=== PATIENT | female | born 1945 | race Caucasian/White ===

== ENCOUNTER 2018-05-08 18:35 | Observation (INO) | payer MEDICARE ==
[~2018-05-08] VITALS: Ht 157.5 cm; Wt 57.6 kg
[2018-05-08] MEDS ORDERED: LOSA50 PO (19:15)
[2018-05-08 19:43] LABS: BASOPHILS ABSOLUTE AUTO 0.04 K/mm3 (0.00-0.23); BASOPHILS PERCENT AUTO 0 % (0-2); EOSINOPHILS ABSOLUTE AUTO 0.09 K/mm3 (0.00-0.68); EOSINOPHILS PERCENT AUTO 1 % (0-6); Hematocrit 35.4 % (33.0-51.0); Hemoglobin 11.8 g/dL (11.5-16.0); IMMATURE GRAN ABSOLUTE AUTO 0.04 K/mm3 (0.00-0.10); IMMATURE GRAN PERCENT AUTO 0 % (0-1); LYMPHOCYTES ABSOLUTE AUTO 2.23 K/mm3 (0.84-5.20); LYMPHOCYTES PERCENT AUTO 24 % (21-46); MONOCYTES ABSOLUTE AUTO 0.62 K/mm3 (0.16-1.47); MONOCYTES PERCENT AUTO 7 % (4-13); Mean Corpuscular HGB Conc 33.3 g/dL (31.5-36.5); Mean Corpuscular Volume 84 fL (80-100); Mean Platelet Volume 9.7 fL (9.1-12.4); NEUTROPHILS ABSOLUTE AUTO 6.44 K/mm3 (1.96-9.15); NEUTROPHILS PERCENT AUTO 68 % (41-73); Platelet Count 315 K/mm3 (150-400); RDW Coefficient Variation 14.1 % (11.7-14.2); RDW Standard Deviation 43.6 fL (35.1-46.3); Red Blood Cell Count 4.22 M/mm3 (3.80-5.20); White Blood Cell Count 9.46 K/mm3 (4.00-11.30)
[2018-05-08 20:03] LABS: Alanine Aminotransfer (ALT/SGP 18 U/L (12-78); Albumin, Blood 3.5 g/dL (3.4-5.0); Albumin/Globulin Ratio 0.8 (0.8-1.8); Alk Phos 127 U/L (50-136); Anion Gap 11 mmol/L (6-16); Aspartate Aminotrans (AST/SGOT 12 U/L (12-37); Bilirubin, Total 0.3 mg/dL (0.1-1.0); Blood Urea Nitrogen 10 mg/dL (8-24); Bun/Creatinine Ratio 14.8 (12.0-20.0); CO2, Blood 23 mmol/L (21-32); Calcium, Blood 9.2 mg/dL (8.5-10.1); Chloride, Blood 104 mmol/L (98-108); Creatinine, Blood 0.68 mg/dL (0.40-1.00); Globulin, Blood 4.5 g/dL (2.2-4.0); Glomerular Filtration Rate >60 (60-); Glucose, Blood 103 mg/dL (70-99); Potassium, Blood 3.5 mmol/L (3.5-5.5); Sodium, Blood 138 mmol/L (136-145)
[2018-05-08] MEDS ORDERED: Aspir 8181 MG PO (22:58)
== END 2018-05-09 16:26 | disposition home or self-care (01) ==
LOC: ER 18:35 → PCU 18:36
PROVIDERS: Emergency Medicine
DX: I16.0 Hypertensive urgency (principal); I71.4 Abdominal aortic aneurysm, without rupture; F17.210 Nicotine dependence, cigarettes, uncomplicated; J43.9 Emphysema, unspecified; Z79.82 Long term (current) use of aspirin; Z79.899 Other long term (current) drug therapy
CPT/HCPCS: 36415; 80053; 85025; 93005; 93010; 96374; 96376; 99284-25; G0378

== ENCOUNTER 2022-10-30 09:22 | Inpatient (IN) | payer MEDICARE ==
[~2022-10-30] VITALS: Ht 157.5 cm; Wt 56.7 kg
[~2022-10-30 09:22] MED LIST: Aspir 8181 MG PO; LOSA50 PO
[2022-10-30 10:27] LABS: BASOPHILS ABSOLUTE AUTO 0.04 K/mm3 (0.00-0.23); BASOPHILS PERCENT AUTO 1 % (0-2); EOSINOPHILS ABSOLUTE AUTO 0.02 K/mm3 (0.00-0.68); EOSINOPHILS PERCENT AUTO 0 % (0-6); Hemoglobin 10.7 g/dL (11.5-16.0); IMMATURE GRAN ABSOLUTE AUTO 0.04 K/mm3 (0.00-0.10); IMMATURE GRAN PERCENT AUTO 1 % (0-1); LYMPHOCYTES ABSOLUTE AUTO 1.29 K/mm3 (0.84-5.20); LYMPHOCYTES PERCENT AUTO 20 % (21-46); MONOCYTES ABSOLUTE AUTO 0.99 K/mm3 (0.16-1.47); MONOCYTES PERCENT AUTO 16 % (4-13); Mean Corpuscular HGB 24.8 pg (26.0-34.0); Mean Corpuscular HGB Conc 32.4 g/dL (31.5-36.5); Mean Corpuscular Volume 76 fL (80-100); Mean Platelet Volume 10.1 fL (9.1-12.4); NEUTROPHILS ABSOLUTE AUTO 3.98 K/mm3 (1.96-9.15); NEUTROPHILS PERCENT AUTO 63 % (41-73); Platelet Count 315 K/mm3 (150-400); RDW Standard Deviation 45.1 fL (35.1-46.3); Red Blood Cell Count 4.32 M/mm3 (3.80-5.20); White Blood Cell Count 6.36 K/mm3 (4.00-11.30)
[2022-10-30] MEDS ORDERED: CARVEDILOL6.25 MG PO (10:32)
[2022-10-30] MEDS ORDERED: LOSA50 PO (10:33)
[2022-10-30] MEDS ORDERED: ATOR10 PO (10:33)
[2022-10-30 10:50] LABS: Albumin, Blood 2.6 g/dL (3.4-5.0); Albumin/Globulin Ratio 0.7 (0.8-1.8); Bilirubin, Total 0.3 mg/dL (0.1-1.0); Bun/Creatinine Ratio 44.1 (12.0-20.0); Calcium, Blood 8.6 mg/dL (8.5-10.1); Creatinine, Blood 0.73 mg/dL (0.40-1.00); Globulin, Blood 3.9 g/dL (2.2-4.0); Total Protein, Blood 6.5 g/dL (6.4-8.2)
--- NOTE | 2022-10-30 16:06 | NUR ---
DR. BO CONTACTED PT REPORTS 3-4 WEEKS OF CONSTIPATION THEN TAKING LAXATIVE AND EXPERIENCING BROWN WATER VOMIT/DIARRHEA/URINE PT HAS REPORTS HX OF OBSTRUCTION REPAIR. CLARIFIED LAB ORDER, PLAN TO NOTIFY LAB OF SERUM K+ DRAW AFTER SECOND BAG OF K+ INFUSION FOR A TOTAL OF 120 MEQ K+ ADMIN.
--- NOTE | 2022-10-30 17:57 | NUR ---
SHIFT SUMMARY PT A&OX4 AND IN PLEASENT MOOD SINCE ARRIVAL FROM ER. CL DIET AT THIS TIME, CAN ADVANCE TOLERATING PER ORDERS. PT C/O ABD DISCOMFORT-PT REPORTS HX OF OBSTRUCTION REPAIR DUE TO SCARRING FROM PREVIOUS SURG. PT REPORTS 3-4 WEEK CONSTIPATION AT HOME THEN TOOK SOME MEDS AND VOMITED "CHOCOLATE MILK" LIKE SUBSTANCE, BROWN WATER BOWEL MOVEMENT/URINE-REPORTED TO KMaynor CRIT. LOW- PLAN TO REASSESS AFTER 120 MEQ K+ ADMIN PER DR. BO. SBA. VSS. CALL LIGHT W/IN REACH.
--- NOTE | 2022-10-31 04:01 | NUR ---
SHIFT MOSTLY UNREMARKABLE. FINISHED IV K+ INFUSION EARLY IN SHIFT AND HAD REPEAT LAB DRAW TO CHECK SERUM K+ LEVELS AT ABOUT 2200. RESULTS SHOWED VALUE OF 2.7. HOSPITALIST NOTIFIED WHO ORDERED 40 MEQ PO K+ ADMINISTRATION AND REPEAT SERUM K+ CHECK WITH MORNING LABS. PT ASYMPTOMATIC, COMFORTABLE, AND ABLE TO SLEEP WELL THROUGH MOST OF REMAINDER OF SHIFT. INDEPENDENT WITHIN ROOM AND ABLE TO MAKE NEEDS KNOWN. CALL LIGHT LEFT WITHIN REACH.
[2022-10-31 06:16] LABS: Bun/Creatinine Ratio 28.8 (12.0-20.0); Calcium, Blood 7.9 mg/dL (8.5-10.1); Creatinine, Blood 0.66 mg/dL (0.40-1.00)
--- NOTE | 2022-10-31 18:16 | NUR ---
SUMMARY- PT A/O X3-4- FORGETFUL TO DETAILS. TOLERATED CLEARS FOR BREAKFAST, BECAME MORE NAUTIOUS AFTER LUNCH, MEDICATED WITH ZOFRAN. HAD AN EMISIS AFTER ZOFOAN, BROWN IN COLOR, NOT COFFEE GROUND. HAD LOOSE TABARES STOOL X2 THIS SHIFT. BT NORMOACTIVE. ABD TENDER UPPER QUAD. RECTAL CHECK FELT NO IMPACTION. CALLED KARINA FOR ADDITIONAL ANTIEMETIC AND TO ASSESS IF PT NEEDS IVF THROUGH THE NIGHT. KCL REPLACEMENT AFTER 1300 K+ 2.8 (DOWN FROM 3.0 @0500) WILL RE-EVAL IN AM.
[2022-10-31 21:19] LABS: Bun/Creatinine Ratio 22.5 (12.0-20.0); Calcium, Blood 8.3 mg/dL (8.5-10.1); Creatinine, Blood 0.62 mg/dL (0.40-1.00); Potassium, Blood 3.4 mmol/L (3.5-5.5)
--- NOTE | 2022-11-01 06:26 | NUR ---
SHIFT SUMMARY NOC PT A/O X 3-4. PT HAD 40 MEQ REPLACEMENT POTASSIUM YESTERDAY AFTERNOON AND POTASSIUM LEVEL IN EVENING WAS 3.4. WAITING ON AM LABS. PT HAD ONE XS LOOSE WATERY STOOL. PT STILL HAVING C/O OF RLQ ABD PAIN. HOSPITALIST WAS NOTIFIED AND CT ABD/PELVIS WO CONTRAST ORDERED. IMAGING JUST PICKED UP PT TO TAKE DOWNSTAIRS. PT HAS HX OF SBO.
[2022-11-01 09:26] LABS: Hematocrit 31.2 % (33.0-51.0); Mean Corpuscular HGB 24.7 pg (26.0-34.0); Mean Corpuscular HGB Conc 32.1 g/dL (31.5-36.5); Mean Corpuscular Volume 77 fL (80-100); Mean Platelet Volume 9.9 fL (9.1-12.4); Platelet Count 203 K/mm3 (150-400); RDW Coefficient Variation 16.4 % (11.7-14.2); RDW Standard Deviation 46.3 fL (35.1-46.3); Red Blood Cell Count 4.05 M/mm3 (3.80-5.20); White Blood Cell Count 2.08 K/mm3 (4.00-11.30)
[2022-11-01 09:46] LABS: International Normalized Ratio 1.31; Prothrombin Time Results 13.5 Sec (9.7-11.5)
--- NOTE | 2022-11-01 10:15 | NUR ---
PT TO OR AT THIS TIME POWERGLIDE IN PLACE THIS RN INITIATED ORDERED K+ AND ZOSYN VERIFIED COMPATIBILY AT Y SITE W/ PHARM. THIS RN NOTIFIED DAUGHTER OF PLANNED SURGERY AND VERIFIED DNR ORDER PT DAUGHTER STATES NO CONINUED VENTILATION POST OP OR CPR, MEDS OK. PT ADMINISTER LOVENOX AND ASPIRIN THIS AM AND PT DID TAKE A FEW BITES OF BREAKFAST, SURGEON AWARE.
[2022-11-01 10:53] LABS: BAND PERCENT MAN 46 % (0-8); BASOPHILS PERCENT MAN 0 % (0-2); EOSINOPHILS PERCENT MAN 0 % (0-6); LYMPHOCYTES % ATYPICAL MANUAL 1 % (0-0); LYMPHOCYTES PERCENT MAN 9 % (21-46); MONOCYTES ABSOLUTE MAN 0.31 K/mm3 (0.16-1.47); MONOCYTES PERCENT MAN 15 % (4-13); MYELOCYTE ABSOLUTE MAN 0.08 K/mm3 (0.00-0.00); MYELOCYTE PERCENT MAN 4 % (0-0); NEUTROPHILS ABSOLUTE MAN 1.47 K/mm3 (1.96-9.15); SEG NEUTROPHILS PERCENT MAN 25 % (41-73); TOTAL CELLS COUNTED 100
[2022-11-01 17:03] LABS: Bun/Creatinine Ratio 22.1 (12.0-20.0); Calcium, Blood 8.1 mg/dL (8.5-10.1); Creatinine, Blood 0.63 mg/dL (0.40-1.00); Potassium, Blood 3.3 mmol/L (3.5-5.5)
--- NOTE | 2022-11-01 17:45 | NUR ---
11/01/22 1740 Yung Matta X-RAY TAKEN, DR. ARREAGA FOUND NO RETAINED ITEMS
--- NOTE | 2022-11-01 19:05 | NUR ---
Arrival to ICU from OR: Patient arrived to ICU rm 3 at 1818hr. Patient drowsy, but opening eyes spontaneously, answering questions, and following commands. VSS, spO2 96-98% on 10L Venti-mask. SpO2 now 95% on 3L/NC. Denies dyspnea/SOB. C/o mild pain "not too bad", not requiring intervention, appears comfortable. Power-glide to ANDREW patent and intact. Peripheral IV to rt wrist patent intact. NS at 100ml/hr started per EMAR. Cavanaugh cath patent and intact, draining small amount of clear yellow urine. Illestomy to rt ABD, liquid brown output in drainage bag, appliance intact, stoma wnl. Mid-line ABD incision with ROGELIO drain, C/D/I. DAYTON drain to lt upper ABD, 150ml of serosanguinous output. Crow drain to lt lower quadrant, no output noted. All ABD dressing's C/D/I.
[2022-11-01 21:48] LABS: Source, Urine Foley catheter
[2022-11-01 21:52] LABS: Bilirubin, Urine Neg (Neg); Blood, Urine 3+ (Neg); Glucose Qualitative, Urine Neg (Neg); Ketones, Urine Neg (Neg); Leukocyte Esterase, Urine Neg (Neg); Nitrite, Urine Neg (Neg); Protein, Urine 2+ (Neg); Specific Gravity, Urine 1.015 (1.003-1.022); Urobilinogen, Urine NORM (Normal)
[2022-11-01 22:36] LABS: Appearance, Urine Clear (Clear); Color, Urine Yellow (P-Yellow)
[2022-11-01 22:37] LABS: Bacteria Few /hpf; Red Blood Cells, Urine 0-2 /hpf (0-2); Squamous Epithelial Cells Few /hpf (Few); White Blood Cells, Urine 0-2 /hpf (0-5)
[2022-11-01 22:39] LABS: Amorphous Light (0-Heavy)
[2022-11-02 04:32] LABS: Hematocrit 29.4 % (33.0-51.0); Hemoglobin 9.5 g/dL (11.5-16.0); Mean Corpuscular HGB 24.6 pg (26.0-34.0); Mean Corpuscular HGB Conc 32.3 g/dL (31.5-36.5); Mean Corpuscular Volume 76 fL (80-100); Mean Platelet Volume 10.5 fL (9.1-12.4); Platelet Count 210 K/mm3 (150-400); RDW Coefficient Variation 16.7 % (11.7-14.2); RDW Standard Deviation 46.4 fL (35.1-46.3); Red Blood Cell Count 3.86 M/mm3 (3.80-5.20); White Blood Cell Count 7.05 K/mm3 (4.00-11.30)
[2022-11-02 05:01] LABS: Magnesium, Blood 1.7 mg/dL (1.6-2.4)
[2022-11-02 05:03] LABS: Albumin, Blood 1.4 g/dL (3.4-5.0); Albumin/Globulin Ratio 0.5 (0.8-1.8); Bilirubin, Total 0.6 mg/dL (0.1-1.0); Bun/Creatinine Ratio 24.8 (12.0-20.0); Calcium, Blood 7.8 mg/dL (8.5-10.1); Creatinine, Blood 0.77 mg/dL (0.40-1.00); Phosphorus, Blood 2.8 mg/dL (2.5-4.9); Total Protein, Blood 4.4 g/dL (6.4-8.2)
--- NOTE | 2022-11-02 05:52 | NUR ---
SHIFT SUMMARY: Patient had an uneventful, restful night. Her vitals have been stable. Able to wean to room air. Mostly denies pain, only medicated once for pain, otherwise she has been resting comfortably. Follows commands, pleasant and cooperative. NG remains in place with green, thick drainage. Minimal drainage from ilesotomy and keiry drain. Moderate serosanguinous output from DAYTON drain.
[2022-11-02 06:04] LABS: BAND PERCENT MAN 28 % (0-8); BASOPHILS PERCENT MAN 0 % (0-2); EOSINOPHILS ABSOLUTE MAN 0.07 K/mm3 (0.00-0.68); EOSINOPHILS PERCENT MAN 1 % (0-6); LYMPHOCYTES PERCENT MAN 10 % (21-46); METAMYELOCYTE ABSOLUTE MAN 0.56 K/mm3 (0.00-0.00); METAMYELOCYTE PERCENT MAN 8 % (0-0); MONOCYTES ABSOLUTE MAN 0.28 K/mm3 (0.16-1.47); MONOCYTES PERCENT MAN 4 % (4-13); MYELOCYTE ABSOLUTE MAN 0.21 K/mm3 (0.00-0.00); MYELOCYTE PERCENT MAN 3 % (0-0); NEUTROPHILS ABSOLUTE MAN 5.21 K/mm3 (1.96-9.15); SEG NEUTROPHILS PERCENT MAN 46 % (41-73); TOTAL CELLS COUNTED 100
--- NOTE | 2022-11-02 07:00 | NUR ---
ASSUME CARE: I have assumed care of this patient.
--- NOTE | 2022-11-02 12:17 | NUR ---
TRANSFER: Pt transferred to surgical floor. She was taken in hospital bed by WASH BOX OPERATOR. Report given to Rosalind DICK
--- NOTE | 2022-11-02 12:37 | NUR ---
1120 TO ROOM VIA BED ACCOMPANIED BY DAUGHTER. ALERT AND ORIENTED. NG PLACED TO LIS WITH DARK BROWN DRAINAGE. DAYTON TO LUQ WITH SS OUTPUT. ILEOSTOMY WITH LIQUID LIGHT BROWN DRAINAGE, STOMA PINK. VALDOVINOS WITH CLEAR YELLOW URINE OUTPUT. MIDLINE ROGELIO INTACT. MALECOT DRAIN PRESENT WITHOUT DRAINAGE AT THIS TIME..
--- NOTE | 2022-11-02 18:21 | NUR ---
PT DECLINES PAIN MEDICATION, STATES "DOESNT NEED IT, NOT IN MUCH PAIN". MALECOT DRAIN WITHOUT OUTPUT. NG WITH DK BROWN/BILE COLORED THIN LIQUIDS. DAYTON WITH SEROSANGUINOUS DRAINAGE. ILEOSTOMY WITH LIGHT BROWN LIQUID DRAINAGE, STOMA PINK. ABD INCISION INTACT WITH ROGELIO FUNCTIONING. PT DENIES NAUSEA. ASSISTS WITH TURNING SELF IN BED
[2022-11-03 05:29] LABS: Hematocrit 28.3 % (33.0-51.0); Hemoglobin 9.1 g/dL (11.5-16.0); Mean Corpuscular HGB 24.3 pg (26.0-34.0); Mean Corpuscular HGB Conc 32.2 g/dL (31.5-36.5); Mean Corpuscular Volume 76 fL (80-100); Mean Platelet Volume 10.5 fL (9.1-12.4); Platelet Count 218 K/mm3 (150-400); RDW Coefficient Variation 17.2 % (11.7-14.2); RDW Standard Deviation 46.5 fL (35.1-46.3); Red Blood Cell Count 3.75 M/mm3 (3.80-5.20); White Blood Cell Count 12.02 K/mm3 (4.00-11.30)
[2022-11-03 05:59] LABS: BAND PERCENT MAN 17 % (0-8); BASOPHILS PERCENT MAN 0 % (0-2); EOSINOPHILS PERCENT MAN 0 % (0-6); LYMPHOCYTES ABSOLUTE MAN 0.48 K/mm3 (0.84-5.20); LYMPHOCYTES PERCENT MAN 4 % (21-46); MONOCYTES PERCENT MAN 5 % (4-13); NEUTROPHILS ABSOLUTE MAN 10.93 K/mm3 (1.96-9.15); SEG NEUTROPHILS PERCENT MAN 74 % (41-73); TOTAL CELLS COUNTED 100
[2022-11-03 06:21] LABS: Albumin, Blood 1.2 g/dL (3.4-5.0); Albumin/Globulin Ratio 0.3 (0.8-1.8); Bilirubin, Total 0.4 mg/dL (0.1-1.0); Bun/Creatinine Ratio 36.6 (12.0-20.0); Calcium, Blood 7.9 mg/dL (8.5-10.1); Creatinine, Blood 0.85 mg/dL (0.40-1.00); Globulin, Blood 3.6 g/dL (2.2-4.0); Potassium, Blood 3.2 mmol/L (3.5-5.5); Total Protein, Blood 4.8 g/dL (6.4-8.2)
--- NOTE | 2022-11-03 10:08 | NUR ---
SUMMARY PTS NG DCD PER ORDERS THIS AM.
--- NOTE | 2022-11-03 14:58 | NUR ---
TURNING OVER CARE TO RADHA Diaz RN. PT RESTING IN BED. DENIES ANY NEEDS. CALL LIGHT IN REACH.
--- NOTE | 2022-11-03 17:42 | NUR ---
SHIFT SUMMARY CARE ASSUMED OF PT AT 1457. PT IS POD#[address] ALMONTE. PT HAS DENIED PAIN. IS HAVING BROWN LIQUID OUTPUT FROM HER OSTOMY. PT TOLERATED A CLEAR LIQUID DIET AND IS TRIALING A FULL LIQUID DIET FOR DINNER. PT HAS BEEN ALERT AND ORIENTED BUT FORGETFUL AT TIMES. WILL MONIOTR UNTIL REPORT TO YURIY DICK.
[2022-11-04 06:23] LABS: Hemoglobin 8.2 g/dL (11.5-16.0); Mean Corpuscular HGB 24.4 pg (26.0-34.0); Mean Corpuscular HGB Conc 32.8 g/dL (31.5-36.5); Mean Corpuscular Volume 74 fL (80-100); Mean Platelet Volume 10.8 fL (9.1-12.4); Platelet Count 195 K/mm3 (150-400); RDW Standard Deviation 46.2 fL (35.1-46.3); Red Blood Cell Count 3.36 M/mm3 (3.80-5.20); White Blood Cell Count 11.56 K/mm3 (4.00-11.30)
[2022-11-04 06:49] LABS: Albumin, Blood 1.2 g/dL (3.4-5.0); Albumin/Globulin Ratio 0.3 (0.8-1.8); Bilirubin, Total 0.3 mg/dL (0.1-1.0); Bun/Creatinine Ratio 44.7 (12.0-20.0); Calcium, Blood 7.9 mg/dL (8.5-10.1); Creatinine, Blood 0.78 mg/dL (0.40-1.00); Globulin, Blood 3.6 g/dL (2.2-4.0); Magnesium, Blood 2.3 mg/dL (1.6-2.4); Phosphorus, Blood 2.9 mg/dL (2.5-4.9); Potassium, Blood 3.4 mmol/L (3.5-5.5); Total Protein, Blood 4.8 g/dL (6.4-8.2)
[2022-11-04 07:04] LABS: BAND PERCENT MAN 1 % (0-8); BASOPHILS PERCENT MAN 0 % (0-2); EOSINOPHILS PERCENT MAN 0 % (0-6); LYMPHOCYTES ABSOLUTE MAN 0.92 K/mm3 (0.84-5.20); LYMPHOCYTES PERCENT MAN 8 % (21-46); MONOCYTES ABSOLUTE MAN 0.11 K/mm3 (0.16-1.47); MONOCYTES PERCENT MAN 1 % (4-13); MYELOCYTE ABSOLUTE MAN 0.11 K/mm3 (0.00-0.00); MYELOCYTE PERCENT MAN 1 % (0-0); SEG NEUTROPHILS PERCENT MAN 89 % (41-73); TOTAL CELLS COUNTED 100
--- NOTE | 2022-11-04 08:10 | NUR ---
dr knutson in to see pt OSTOMY LEAKED. PLACED NEW APPLIANCE AND DRESSINGS TO ABDOMEN.
--- NOTE | 2022-11-04 10:01 | NUR ---
DISCUSSED EDEMA TO RYLAN Castillo/DR MORA. NO NEW ORDERS AT THIS TIME.
--- NOTE | 2022-11-04 17:05 | NUR ---
SUMMARY PT'S OSTOMY LEAKED AND SOILED MIDLINE INCISION AT BEGINNING OF SHIFT. CHANGED APPLIANCE AND PLACED MEDIPORE DRESSING TO MIDLINE INCISION. DR ALMONTE IN TO SEE PT DURING THIS TIME. PT'S PO INTAKE POOR. ILEOSTOMY OUTPUT INCREASED TODAY; STAFF CHECKING FREQUENTLY. PT WORKED WITH THERAPY THIS AFTERNOON AND SAT UP IN CHAIR FOR APPROXIMATELY 1 HOUR. NOW RESTING BACK IN BED. CALL LIGHT IN REACH.
[2022-11-05 04:57] LABS: BASOPHILS ABSOLUTE AUTO 0.01 K/mm3 (0.00-0.23); BASOPHILS PERCENT AUTO 0 % (0-2); EOSINOPHILS ABSOLUTE AUTO 0.01 K/mm3 (0.00-0.68); EOSINOPHILS PERCENT AUTO 0 % (0-6); Hematocrit 25.7 % (33.0-51.0); Hemoglobin 8.1 g/dL (11.5-16.0); IMMATURE GRAN ABSOLUTE AUTO 0.18 K/mm3 (0.00-0.10); IMMATURE GRAN PERCENT AUTO 2 % (0-1); LYMPHOCYTES ABSOLUTE AUTO 0.93 K/mm3 (0.84-5.20); LYMPHOCYTES PERCENT AUTO 10 % (21-46); MONOCYTES ABSOLUTE AUTO 0.41 K/mm3 (0.16-1.47); MONOCYTES PERCENT AUTO 4 % (4-13); Mean Corpuscular HGB 24.1 pg (26.0-34.0); Mean Corpuscular HGB Conc 31.5 g/dL (31.5-36.5); Mean Corpuscular Volume 77 fL (80-100); NEUTROPHILS ABSOLUTE AUTO 7.85 K/mm3 (1.96-9.15); NEUTROPHILS PERCENT AUTO 84 % (41-73); Platelet Count 161 K/mm3 (150-400); RDW Coefficient Variation 17.4 % (11.7-14.2); Red Blood Cell Count 3.36 M/mm3 (3.80-5.20); White Blood Cell Count 9.39 K/mm3 (4.00-11.30)
[2022-11-05 05:17] LABS: Albumin, Blood 1.2 g/dL (3.4-5.0); Albumin/Globulin Ratio 0.3 (0.8-1.8); Bilirubin, Total 0.3 mg/dL (0.1-1.0); Bun/Creatinine Ratio 36.6 (12.0-20.0); Calcium, Blood 7.7 mg/dL (8.5-10.1); Creatinine, Blood 0.82 mg/dL (0.40-1.00); Globulin, Blood 3.7 g/dL (2.2-4.0); Potassium, Blood 3.5 mmol/L (3.5-5.5); Total Protein, Blood 4.9 g/dL (6.4-8.2)
--- NOTE | 2022-11-05 07:26 | NUR ---
POD 4 S/P COLECTOMY+ILEOSTOMY. PT VSS T/O NIGHT. PT DENIED PAIN, DRESSING W/SMALL AMT SHADOWING TO DISTAL DRESSING. DAYTON PUT OUT SMALLAMT LIGHT PINK SS DRNG, MALECOT DRAIN INTACT W/NO DRNG. ILEOSTOMY PUT OUT 1000 MG LIQ BROWN STOOL. VALDOVINOS PATANT, URINE CENTRAL SERVICE SUPPLY DISTRIBUTOR THIS AM. PO INTAKE MINIMAL, SIPS OF WATER ENC. PT REPOSITIONING SELF IN BED, ASSISTED PRN. BED ALARM ON FOR SAFETY.
--- NOTE | 2022-11-05 18:41 | NUR ---
SHIFT SUMMARY POD 5 SIGMOID COLECTOMY WITH ILEOSTOMY. [id number]. PT UP IN CHAIR FOR MOST OF SHIFT TODAY. PT PLACED ON 3L NASAL CANULA THIS AM BY RESPIRATORY THERAPY. SATS WERE DROPPING WHEN PT ATTEMPTED TO GET TO EDGE OF BED. SINCE 3L PLACED SATS HAVE REMAINED 94% OR HIGHER. ILEOSTOMY CONTINUES TO PUT OUT LARGE AMOUNT OF LIQUID OUTPUT. MALECOTT DRAIN REMAINS FREE FROM DRAINAGE. MINIMAL TO DAYTON DURING SHIFT. PT HAS SMALL APPETITE DURING SHIFT, SHE REPORTS FOOD DOES NOT SOUND APPEALING. NO PAIN OR NAUSEA DURING SHIFT. MIDLINE INCISION REMAINS UNCHANGED AT THIS TIME.
[2022-11-06 04:23] LABS: BASOPHILS ABSOLUTE AUTO 0.02 K/mm3 (0.00-0.23); BASOPHILS PERCENT AUTO 0 % (0-2); EOSINOPHILS ABSOLUTE AUTO 0.04 K/mm3 (0.00-0.68); EOSINOPHILS PERCENT AUTO 1 % (0-6); Hematocrit 24.4 % (33.0-51.0); Hemoglobin 7.6 g/dL (11.5-16.0); IMMATURE GRAN ABSOLUTE AUTO 0.15 K/mm3 (0.00-0.10); IMMATURE GRAN PERCENT AUTO 2 % (0-1); LYMPHOCYTES ABSOLUTE AUTO 1.07 K/mm3 (0.84-5.20); LYMPHOCYTES PERCENT AUTO 12 % (21-46); MONOCYTES ABSOLUTE AUTO 0.39 K/mm3 (0.16-1.47); MONOCYTES PERCENT AUTO 5 % (4-13); Mean Corpuscular HGB 24.1 pg (26.0-34.0); Mean Corpuscular HGB Conc 31.1 g/dL (31.5-36.5); Mean Corpuscular Volume 78 fL (80-100); Mean Platelet Volume 11.1 fL (9.1-12.4); NEUTROPHILS ABSOLUTE AUTO 7.02 K/mm3 (1.96-9.15); NEUTROPHILS PERCENT AUTO 81 % (41-73); NRBC ABSOLUTE 0.02 K/mm3 (0.00-0.02); NRBC Auto 0.2 /100 WBC (0.0-0.2); Platelet Count 141 K/mm3 (150-400); RDW Coefficient Variation 17.5 % (11.7-14.2); RDW Standard Deviation 48.8 fL (35.1-46.3); Red Blood Cell Count 3.15 M/mm3 (3.80-5.20); White Blood Cell Count 8.69 K/mm3 (4.00-11.30)
--- NOTE | 2022-11-06 06:33 | NUR ---
POD 5 S/P COLECTOMY+OSTOMY. PT VSS T/O NIGHT. OT2 DEC TO 2L. LUNGS COARSE, DIM IN BASES, PT HAS LOOSE NON PROD COUGH. DRESSING WNL. DAYTON PUT OUT 40ML LIGHT PINK/YELLOW SS DRNG, NO DRNG NOTED FROM MALECOT DRAIN. ILEOSTOMY PUTTING OUT LIQ BROWN STOOL. PT DENIED PAIN/N/V. URINE OUTPUT 200ML THIS SHIFT, PO FLUIDS ENC. PT REPOSITIONING SELF IN BED, ASSISTED PRN. PT AWAKE IN BED WATCHING TV THIS AM. PLAN TO MOBILIZE W/PT.
[2022-11-06 07:00] LABS: Albumin, Blood 1.2 g/dL (3.4-5.0); Albumin/Globulin Ratio 0.3 (0.8-1.8); Bilirubin, Total 0.3 mg/dL (0.1-1.0); Bun/Creatinine Ratio 29.4 (12.0-20.0); Calcium, Blood 7.9 mg/dL (8.5-10.1); Creatinine, Blood 0.82 mg/dL (0.40-1.00); Globulin, Blood 3.6 g/dL (2.2-4.0); Potassium, Blood 3.8 mmol/L (3.5-5.5); Total Protein, Blood 4.8 g/dL (6.4-8.2)
--- NOTE | 2022-11-06 11:19 | NUR ---
DR. ALMONTE IN ROOM THIS AM AROUND 0800, BOTTOM OF MIDLINE INCISION MERCY REMOVED AND ORDERS RECIEVED FOR WET TO DRY DRESSING TO BE CHANGED DAILY. WOUND CONSULT PLACED FOR WOUNDVAC PLACEMENT WELL. NEW OSTOMY APPLIANCE PLACED, EDUCATION PROVIDED TO PATIENT. SHE WAS RECEPTIVE TO EDUCATION.
--- NOTE | 2022-11-06 15:01 | NUR ---
Spoke with Pt's Primary RN Antolin and discussed case prior to visiting with Pt. Pt resting in bed upon arrival. Pt denies pain at this time and states "it's more discomfort than pain". Pt denies need for pain medication at this time. Pt denies anxiety, SOB, and nausea at this time. Offered supportive visit and reviewed plan of care. Pt reports plan is for her to remain in the hospital for a couple more days then will D/C to [facility] for SNF. She reports being and has 2 daughters. She reports oldest daughter is very supportive and youngest daughter is not. Continued supportive visit. Engaged in therapeutic conversation regarding considering completing POLST to align with her DNR wishes. Pt reports not being interested and states my daughter knows my wishes. Pt expresses appreciation of visit and reports no concerns at this time. Palliative Care will remain available
--- NOTE | 2022-11-06 16:05 | NUR ---
WOUND CARE MORRIS AND NEPHEW WOUND VAC PLACED TO MIDLINE ABDOMINAL WOUND. SUPERIOR PORTION OF INCISION WITH MERCY IN PLACE. DISTAL PORTION DEHISCED. WOUND CLEANSED WITH NS. DRAPPING TO MERCY AND PERIWOUND, ONE PIECE BLACK FOAM TO WOUND BED COVERED WITH TRANSPARENT FILM. VAC SET TO CONTINUOUS 120 MMHG. GOOD SEAL ACHIEVED. R LATERAL EDGE OF TRANSPARENT FILM COVERED WITH HYDROCOLLOID DRESSING TO ALLOW FOR OSTOMY APPLIANCE PLACEMENT. PT DENIED PAIN AND TOLERATED CHANGE WELL. PHOTO AND ASSESSMENT IN HARD CHART
--- NOTE | 2022-11-06 17:19 | NUR ---
SHIFT SUMMARY EX LAP WITH COLECTOMY, NEW ILEOSTOMY ILEOSTOMY CHANGED TWICE TODAY. NEW WOUND VAC PLACED TO MIDLINE INCISION CURRENTLY COMPRESSED AND CDI. NEW APPLIANCE PLACED BY WOUND VAC CONTINUES TO HAVE LIQUID OUTPUT. PT HAS BEEN UP IN CHAIR AND EXPRESSES EAGERNESS TO CONTINUE WORKING WITH THERAPY. SHE DENIES PAIN AND NAUSEA DURING SHIFT BUT APPETITE REMAINS MINIMAL. SHE REPORTS TO NURSING STAFF THAT SHE NORMALLY EATS ONE SMALL MEAL PER DAY AT HOME.
[2022-11-07 05:37] LABS: BASOPHILS ABSOLUTE AUTO 0.02 K/mm3 (0.00-0.23); BASOPHILS PERCENT AUTO 0 % (0-2); EOSINOPHILS ABSOLUTE AUTO 0.04 K/mm3 (0.00-0.68); EOSINOPHILS PERCENT AUTO 0 % (0-6); Hemoglobin 7.9 g/dL (11.5-16.0); IMMATURE GRAN ABSOLUTE AUTO 0.33 K/mm3 (0.00-0.10); IMMATURE GRAN PERCENT AUTO 4 % (0-1); LYMPHOCYTES PERCENT AUTO 9 % (21-46); MONOCYTES ABSOLUTE AUTO 0.35 K/mm3 (0.16-1.47); MONOCYTES PERCENT AUTO 4 % (4-13); Mean Corpuscular HGB 24.4 pg (26.0-34.0); Mean Corpuscular HGB Conc 31.6 g/dL (31.5-36.5); Mean Corpuscular Volume 77 fL (80-100); Mean Platelet Volume 11.5 fL (9.1-12.4); NEUTROPHILS ABSOLUTE AUTO 7.89 K/mm3 (1.96-9.15); NEUTROPHILS PERCENT AUTO 83 % (41-73); NRBC ABSOLUTE 0.02 K/mm3 (0.00-0.02); NRBC Auto 0.2 /100 WBC (0.0-0.2); Platelet Count 152 K/mm3 (150-400); RDW Coefficient Variation 17.2 % (11.7-14.2); RDW Standard Deviation 48.3 fL (35.1-46.3); Red Blood Cell Count 3.24 M/mm3 (3.80-5.20); White Blood Cell Count 9.53 K/mm3 (4.00-11.30)
[2022-11-07 06:31] LABS: Albumin, Blood 1.3 g/dL (3.4-5.0); Albumin/Globulin Ratio 0.3 (0.8-1.8); Bilirubin, Total 0.3 mg/dL (0.1-1.0); Calcium, Blood 8.1 mg/dL (8.5-10.1); Creatinine, Blood 0.73 mg/dL (0.40-1.00); Globulin, Blood 3.8 g/dL (2.2-4.0); Potassium, Blood 3.9 mmol/L (3.5-5.5); Total Protein, Blood 5.1 g/dL (6.4-8.2)
--- NOTE | 2022-11-07 06:42 | NUR ---
POD 6 S/P COLECTOMY+ILEOSTOMY. PT BP ELEVATED THIS AM, AM COZAAR GIVEN EARLY. 2LO2 IN PLACE, LUNGS COARSE, COUGH LOOSE MORE PRODUCTIVE. I/S USE REINCORFED. WOUND VAC TO MIDLINE INCISION PLACE W/SEAL AND SX INTACT, NO SIG DRNG NOTED. DAYTON PUT OUT 20ML LIGHT PINK SS DRNG, NO DRNG NOTED FROM MALECOT DRAIN. ILEOSTOMY PUTTING OUT LIQ BROWN STOOL. PT CONT TO REP DEC APPETITE. FOELY D/C R/T LEAKING. PT VOIDING AFTER W/O DIFFICULTY, UO REMIANS DECREASED, APPX 250ML THIS SHIFT; PO FLUIDS ENC. PT DENIED PAIN/N/V. OSTOMY EDUCATION CONT. PLAN TO MOBILIZE W/PT.
--- NOTE | 2022-11-07 17:51 | NUR ---
SUMMARY PT HAVING MAROON OUTPUT FROM ILEOSTOMY. NOTIFIED DR BUENROSTRO THIS AM; NO NEW ORDERS AT THAT TIME. DISCUSSED WITH DR HENRY WHO GAVE VERBAL ORDER TO HOLD LOVENOX TODAY. DR GRULLON ORDERED OMEPRAZOLE, WHICH WAS GIVEN PER ORDERS. PT SAT UP IN CHAIR FOR OVER HALF SHIFT. HAS BEEN RESTING IN BED THIS AFTERNOON. TAKING SMALL AMOUNTS OF REGULAR DIET BUT DRINKING WATER. WOUND VAC TO MIDLINE ABDOMEN COMPRESSED AND TO SUCTION. DAYTON DRAIN COMPRESSED. NO DRAINAGE NOTED IN MALECOT DRAIN. CALL LIGHT IN REACH.
[2022-11-08 04:48] LABS: BASOPHILS ABSOLUTE AUTO 0.01 K/mm3 (0.00-0.23); BASOPHILS PERCENT AUTO 0 % (0-2); EOSINOPHILS ABSOLUTE AUTO 0.09 K/mm3 (0.00-0.68); EOSINOPHILS PERCENT AUTO 1 % (0-6); Hematocrit 22.9 % (33.0-51.0); Hemoglobin 7.3 g/dL (11.5-16.0); IMMATURE GRAN ABSOLUTE AUTO 0.26 K/mm3 (0.00-0.10); IMMATURE GRAN PERCENT AUTO 2 % (0-1); LYMPHOCYTES ABSOLUTE AUTO 0.79 K/mm3 (0.84-5.20); LYMPHOCYTES PERCENT AUTO 7 % (21-46); MONOCYTES ABSOLUTE AUTO 0.37 K/mm3 (0.16-1.47); MONOCYTES PERCENT AUTO 4 % (4-13); Mean Corpuscular HGB 24.7 pg (26.0-34.0); Mean Corpuscular HGB Conc 31.9 g/dL (31.5-36.5); Mean Corpuscular Volume 78 fL (80-100); Mean Platelet Volume 12.2 fL (9.1-12.4); NEUTROPHILS ABSOLUTE AUTO 9.11 K/mm3 (1.96-9.15); NEUTROPHILS PERCENT AUTO 86 % (41-73); NRBC ABSOLUTE 0.02 K/mm3 (0.00-0.02); NRBC Auto 0.2 /100 WBC (0.0-0.2); Platelet Count 187 K/mm3 (150-400); RDW Coefficient Variation 17.3 % (11.7-14.2); RDW Standard Deviation 48.5 fL (35.1-46.3); Red Blood Cell Count 2.95 M/mm3 (3.80-5.20); White Blood Cell Count 10.63 K/mm3 (4.00-11.30)
[2022-11-08 05:02] LABS: Bun/Creatinine Ratio 20.9 (12.0-20.0); Calcium, Blood 7.6 mg/dL (8.5-10.1); Creatinine, Blood 0.67 mg/dL (0.40-1.00); Potassium, Blood 3.4 mmol/L (3.5-5.5)
[2022-11-08 05:59] LABS: Cancer Antigen 125 23.7 U/mL (1.5-35.0); Carcinoembryonic Antigen 1.2 ng/mL (0.0-3.0)
--- NOTE | 2022-11-08 07:32 | NUR ---
POD 7 S/P COLECTOMY+OSTOMY. PT VSS, SATS DROPPED TO 87% ON RA WHEN SLEEPING, 2LO2 PLACED, I/S USE REINFORCED. WOUND VAC IN PLACE W/SEAL AND SX INTACT. DAYTON PUT OUT 20ML LIGHT PINK SS DRNG, NO NEW DRNG NOTED FROM MALECOT DRAIN. ILEOSTOMY OUTPUT MORE BROWN THIS AM. PT DENIED ABD PAIN/N/V, IS VOIDING URINE W/O DIFFICULTY. PT UP OOB W/1 ASSIST, IS REPOSITIONING SELF IN BED. PLAN CONT OSTOMY EDUCATION AND MOBILIZE W/PT.
--- NOTE | 2022-11-08 12:13 | NUR ---
PT REFUSED LUNCH TRAY DISCUSSED IMPORTANCE OF NUTRITION FOR WOUND HEALING.
--- NOTE | 2022-11-08 14:31 | NUR ---
BUSH HOG OPERATOR IN TO SEE PT. CHANGED WOUND VAC, OSTOMY APPLIANCE AND DRAIN SPONGE.
--- NOTE | 2022-11-08 14:42 | NUR ---
WOUND CARE MIDLINE ABDOMEN WOUND VAC DRESSING CHANGED. 2X2 GAUZE SUPERIOR TO DEHISCENCE, EAKINS RING TO NAVEL. PERIWOUND AND INCISION DRAPED WITH TRANSPARENT FILM. ONE PIECE BLACK FOAM REMOVED, WOUND CLEANSED NS, ONE PIECE BLACK FOAM REAPPLIED. VAC SET TO CONTINUOUS 12O MMHG. OSTOMY APPLIANCE CHANGED, STOMA IS PROTRUDING RED, MOIST, PERISKIN INTACT. DRAIN SITES CLEANSED AND NEW SPIT GAUZE APPLIED. PT TOLERATED WELL
--- NOTE | 2022-11-08 18:46 | NUR ---
SUMMARY PT HAD VERY POOR PO INTAKE THIS SHIFT, ONLY WANTED TO DRINK WATER. DID ACCEPT FRUIT SMOOTHIE THIS EVENING AND IS SIPPING ON IT. EDUCATED PT ON IMPORTANCE OF NUTRITION FOR WOUND HEALING. ILEOSTOMY HAD DECREASED OUTPUT THIS SHIFT. PRODUCING FLATUS. IV FLUIDS INFUSING PER ORDERS. DOOR REPAIRMAN CAME UP AND CHANGED WOUND VAC, OSTOMY AND DRAIN SPONGE. TRACE AMT BROWNISH DRAINAGE IN MALECOT DRAIN. DAYTON PUTTING OUT SS DRAINAGE. CALL LIGHT IN REACH.
--- NOTE | 2022-11-09 06:14 | NUR ---
SHIFT SUMMARY ASSUMED CARE OF PT ROUGHLY 0345 FROM JAG DICK. VSS. POD 8- EX LAP c ILEOSTOMY. RUQ ILEOSTOMY c ROUGHLY 200ML LIQUID DK BROWN/GREEN STOOL. DENIES N/V OR ABD PAIN. DAYTON DRAIN c NO OUTPUT THIS SHIFT. MALECOT DRAIN c NO OUTPUT & INTACT. MIDLINE WOUND VAC DRESSING C/D/I, NO DRAINAGE IN CANISTER. PER REPORT FROM CECI CABALLERO PT NOT EAT/DRINKING & NOT FEELING HUNGRY ALSO ILEOSTOMY OUTPUT HAS DECREASED PER REPORT. CALL LIGHT IN REACH, WILL MONITOR.
[2022-11-09 08:54] LABS: Hemoglobin 6.5 g/dL (11.5-16.0); Mean Corpuscular HGB 24.1 pg (26.0-34.0); Mean Corpuscular Volume 78 fL (80-100); Mean Platelet Volume 12.7 fL (9.1-12.4); NRBC ABSOLUTE 0.02 K/mm3 (0.00-0.02); NRBC Auto 0.2 /100 WBC (0.0-0.2); Platelet Count 243 K/mm3 (150-400); RDW Coefficient Variation 17.5 % (11.7-14.2); RDW Standard Deviation 49.1 fL (35.1-46.3); White Blood Cell Count 9.82 K/mm3 (4.00-11.30)
[2022-11-09 09:14] LABS: Albumin, Blood 1.3 g/dL (3.4-5.0); Albumin/Globulin Ratio 0.4 (0.8-1.8); Bilirubin, Total 0.2 mg/dL (0.1-1.0); Bun/Creatinine Ratio 13.8 (12.0-20.0); Calcium, Blood 7.5 mg/dL (8.5-10.1); Creatinine, Blood 0.65 mg/dL (0.40-1.00); Globulin, Blood 3.6 g/dL (2.2-4.0); Potassium, Blood 3.1 mmol/L (3.5-5.5); Total Protein, Blood 4.9 g/dL (6.4-8.2)
--- NOTE | 2022-11-09 10:00 | NUR ---
PT PLEASANT TODAY. SOMEWHAT QUIET. DAUGHTER IN TO VISIT TODAY. PT NOT EATING WELL. GOT HER SOME ICECREAM TO MIX WITH HER ENSURE - SORT OF A SHAKE. STATED DID NOT LIKE. DID EAT VANILLA AND ORANGE SHERBERT. WAS IN TO CHANGE LLQ ABD DRESSING TODAY. OSTOMY PUTTING OUT DARK TO MED GREEN LIQUIDY STOOL. ABD WOUND VAC INTACT AND ON SUCTION. H/R REG, NO MURMUR NOTED. NO TELE. LUNGS COARSE T/O. PRESENTS IF MIGHT BE PHLEM. ATTEMPTED TO GET PT TO COUGH, THIS HELPED A LITTLE. PT HAS I/S AND I REINSTRUCTED HER TO USE Q HOUR. VOIDS 1 ASST TO BSC. DRAINS INTACT AND BP DRAINING. BULB DEFLATED. MIN S/S FLUID NOTED. DRAIN TO VALDOVINOS TYPE NO DRAINAGE NOTED. BED IN LOW POSITION, CALL LITE IN REACH, CALLS APPROP
--- NOTE | 2022-11-09 16:33 | NUR ---
PT PLEASANT TODAY. DID GIVE 1 U PRBC TODAY. FINISHED 1530. BLOOD DRAW TO BE DONE AT 1630 . PT NOT C/O PAIN TODAY. SHE HAS NOT BEEN EATING MUCH T/O DAY. DID NOT LIKE SHAKE WE MADE. DID EAT ICECREAM TODAY. IN AND CHANGED ABD DSG THIS AM. NO OTHER NEW CONCERNS NOTED. BED IN LOW POSITION, CALL LITE IN REACH, CALLS APPROP
--- NOTE | 2022-11-09 16:57 | NUR ---
CALLED PHARMACY RE NESHA DUE AT 1800, BUT WAS LAST R/T RECEIVING BLOOD. REQUEST WE RUN AT 20:00 TONITE. WILL PASS TO ALLEN DICK.
[2022-11-09 17:13] LABS: Hematocrit 26.4 % (33.0-51.0); Hemoglobin 8.4 g/dL (11.5-16.0)
[2022-11-10 04:43] LABS: Hematocrit 23.4 % (33.0-51.0); Hemoglobin 7.5 g/dL (11.5-16.0)
[2022-11-10 05:02] LABS: Bun/Creatinine Ratio 13.3 (12.0-20.0); Calcium, Blood 7.6 mg/dL (8.5-10.1); Creatinine, Blood 0.6 mg/dL (0.40-1.00); Potassium, Blood 3.3 mmol/L (3.5-5.5)
--- NOTE | 2022-11-10 05:36 | NUR ---
SHIFT SUMMARY AOX3. SLOW TO RESPOND. POD 9-COLECTOMY c ILEOSTOMY PLACEMENT. PT DENIES N/V OR ANY PAIN. ACTIVE BT T/O A4Q. REPORTS LACK OF APPETITE, TOLERATING LIQUIDS OKAY. ILEOSTOMY HAD 300ML YELLOW GREEN LIQUID BM THIS SHIFT. DAYTON DRAIN HAD 10ML PINK PURULENT DRAINAGE. MALECOT DRAIN W/O ANY DRAINAGE IN BAG, DOES HAVE SM AMOUNT PINK PURULENT DRAINAGE ON CORNER OF GAUZE DRESSING AROUND INSERTION SITE, WILL PASS TO ONCOMING NURSE. MIDLINE WOUND VAC INTACT & SET TO SX, MINIMAL AMOUNT RED DRAINAGE IN WOUND VAC CANISTER. 1 ASSIST TO BSC c FWW & GB. CALL LIGHT IN REACH & WILL MONITOR.
--- NOTE | 2022-11-10 12:26 | NUR ---
0725-RECEIVED BEDSIDE REPORT FROM PREVIOUS SHIFT RN, PT AWAKE, A/O X 4, PLEASANT. PT DENIES PAIN AT THIS TIME. BED IN LOWEST POSITION, BED RAILS UP X 2, CALL LIGHT WITHIN REACH. OSTOMY PATENT DRAINING YELLOW/GREEN LIQUID EFFLUENT. MALECOTT DRAIN WITH NO DRAINAGE. DAYTON DRAIN WITH MINIMAL SEROUSANGUINOUS PURULENT DRAINAGE, MINIMAL AMOUNT. WOUND VAC DRESSING INTACT. PT ON 2. O2 VIA NC
--- NOTE | 2022-11-10 13:14 | NUR ---
FOLLOWING ONE TIME APRESOLINE FOR SBP 184, F/U BP 127/39. NOTIFIED PROVIDER, ORDERS GIVEN TO MONITOR BP
--- NOTE | 2022-11-10 17:37 | NUR ---
CHANGED WOUND VAC DRESSING AND OSTOMY APPLIANCE WITH CONSULTANT RN ERIC
--- NOTE | 2022-11-11 05:19 | NUR ---
SHIFT SUMMARY AOX3, FORGETFUL @TIMES. BP ELEVATED THIS AM @170/58, MEDICATED c 10MG IV HYDRALAZINE & WHEN RECHECKED BP @123/46. REST OF VSS. SPO2 >92% ON 1L O2. DENIES PAIN, TOLERATING LIQUIDS WEL, DENIES FEELING HUNGRY DOESNT WANT SOLID FOOD, DENIES N/V. ACTIVE BT A4Q. ILEOSTOMY c 200ML GREEN/YELLOW LIQUID STOOL. DAYTON DRAIN c NO OUTPUT THIS SHIFT. MALECOT DRAIN c NO OUTPUT THIS SHIFT. MIDLINE WOUND VAC DRESSING C/D/I & c GOOD SX, SM AMOUNT SEROSANGUINOUS DRAINAGE IN CANISTER. ALL DRESSINGS WERE CHANGED YESTERDAY DAY SHIFT 11/10/22. CALL LIGHT IN REACH, WILL MONITOR.
[2022-11-11 05:34] LABS: BASOPHILS ABSOLUTE AUTO 0.02 K/mm3 (0.00-0.23); BASOPHILS PERCENT AUTO 0 % (0-2); EOSINOPHILS ABSOLUTE AUTO 0.09 K/mm3 (0.00-0.68); EOSINOPHILS PERCENT AUTO 1 % (0-6); Hematocrit 25.2 % (33.0-51.0); IMMATURE GRAN ABSOLUTE AUTO 0.12 K/mm3 (0.00-0.10); IMMATURE GRAN PERCENT AUTO 1 % (0-1); LYMPHOCYTES ABSOLUTE AUTO 0.74 K/mm3 (0.84-5.20); LYMPHOCYTES PERCENT AUTO 8 % (21-46); MONOCYTES ABSOLUTE AUTO 0.46 K/mm3 (0.16-1.47); MONOCYTES PERCENT AUTO 5 % (4-13); Mean Corpuscular HGB 25.3 pg (26.0-34.0); Mean Corpuscular HGB Conc 31.7 g/dL (31.5-36.5); Mean Corpuscular Volume 80 fL (80-100); Mean Platelet Volume 11.7 fL (9.1-12.4); NEUTROPHILS ABSOLUTE AUTO 8.17 K/mm3 (1.96-9.15); NEUTROPHILS PERCENT AUTO 85 % (41-73); Platelet Count 296 K/mm3 (150-400); RDW Coefficient Variation 18.4 % (11.7-14.2); RDW Standard Deviation 52.4 fL (35.1-46.3); Red Blood Cell Count 3.16 M/mm3 (3.80-5.20)
[2022-11-11 06:22] LABS: Albumin, Blood 1.4 g/dL (3.4-5.0); Albumin/Globulin Ratio 0.4 (0.8-1.8); Bilirubin, Total 0.3 mg/dL (0.1-1.0); Calcium, Blood 7.9 mg/dL (8.5-10.1); Creatinine, Blood 0.64 mg/dL (0.40-1.00); Globulin, Blood 3.8 g/dL (2.2-4.0); Potassium, Blood 3.4 mmol/L (3.5-5.5); Total Protein, Blood 5.2 g/dL (6.4-8.2)
--- NOTE | 2022-11-11 16:34 | NUR ---
SHIFT SUMMARY POD 11 COLECTOMY WITH ILEOSTOMY. LIQUID OUTPUT CONTINUES FROM ILEOSTOMY. WOUND VAC DRESSING REMAINS CDI AND FOAM COMPRESSED. PT HAS MINIMAL DRAINAGE FROM WOUND VAC. PT UP TO CHAIR DURING SHIFT. STRONG COUGH, CLEARING SECRETIONS DURING SHIFT. PT BEGAN COMPLAINING OF SOME ORAL PAIN TODAY. NOTIFIED PHYSICIAN, ORDERS RECIEVED FOR NYSTATIN. PT TOELRATING WELL.
[2022-11-12 04:39] LABS: Hematocrit 22.7 % (33.0-51.0)
--- NOTE | 2022-11-12 04:45 | NUR ---
SHIFT SUMMARY AOX3. POD 11-COLECTOMY c ILEOSTOMY. 450ML BROWN GREEN LIQUID BM OUT ILEOSTOMY. DAYTON c ROUGHLY 3ML PURULENT PINK DRAINAGE. MALECOT c NO OUTPUT. MIDLINE WOUND VAC DRESSING C/D/I, CANISTER c SEROSANGUINOUS DRAINAGE. VSS. PT DENIES ABD PAIN OR N/V. TOLERATING PO FLUIDS. REPORTS SORE THROAT/MOUTH, PO SWISH & SWALLOW GIVEN. CALL LIGHT IN REACH, WILL MONITOR.
[2022-11-12 05:00] LABS: Albumin, Blood 1.3 g/dL (3.4-5.0); Albumin/Globulin Ratio 0.4 (0.8-1.8); Bilirubin, Total 0.2 mg/dL (0.1-1.0); Bun/Creatinine Ratio 15.7 (12.0-20.0); Calcium, Blood 7.9 mg/dL (8.5-10.1); Creatinine, Blood 0.57 mg/dL (0.40-1.00); Globulin, Blood 3.6 g/dL (2.2-4.0); Potassium, Blood 3.5 mmol/L (3.5-5.5); Total Protein, Blood 4.9 g/dL (6.4-8.2)
[2022-11-12 15:37] LABS: Hematocrit 26.3 % (33.0-51.0); Hemoglobin 7.9 g/dL (11.5-16.0)
--- NOTE | 2022-11-12 16:08 | NUR ---
WOUND VAC DRESSING CHANGED BY WOUND CARE NURSE, PT'S MALECOT DRAIN CONNECTED TO DAYTON BULB SUCTION THIS AM PER DR. ALMONTE.
--- NOTE | 2022-11-12 16:29 | NUR ---
WOUND CARE TRANSPARENT WOUND VAC DRESSING IS SATURATED WITH POCKETS OF DRAINAGE EXTENDING TO SPLIT GAUZE COVERING L LATERAL DRAINS. SPLIT GAUZE IS REINFORCED WITH EXU-DRY. ON VAC REMOVAL IT IS NOTED THAT BLACK FOAM IN WOUND BED HAS BEEN COVERED WITH HYDROCOLLOID DRESSING WITH WOUND VAC TUBING PLACED ON TOP OF THAT. DRAINAGE IS POOLED IN WOUND BED CAUSING BREAKDOWN. UNDERMINNING NOTED FROM 7-9 DEEPEST AT 4CM. 2CM TUNNEL IS NOTED AT 12:00. PERIWOUND IS MACERATED. WOUND BED DOES STILL APPEAR APPROPRIATE FOR VAC THERAPY. WOUND CLEANSED WITH NS. EAKINS RING TO NAVEL. 2X2 GAUZE SUPERIOR TO DEHISCENCE. INCISION LINE AND PERIWOUND DRAPED WITH TRANSPATENT FILM. TWO PIECES BLACK FOAM TO WOUND BED COVERED WITH TRANSPARENT FILM THEN VAC TUBING. HYDROCOLLOID PLACED ON R LATERAL WOUND EDGE BETWEEN WOUND AND STOMA OVER TRANSPARENT FILM. STOMA APPLIANCE CHANGED. STOMA IS PROTRUDING AND BEEFY RED. PERISTOMA SKIN INTACT. DRAINS CLEANSED NS AND NEW DRAIN SPONGES APPLIED. PT TOLERATED WELL. LEFT MESSAGE FOR DR. ALMONTE TO NOTIFY OF WOUND CHANGE
--- NOTE | 2022-11-12 18:33 | NUR ---
SUMMARY DENIED ANY PAIN OR NAUSEA T/O SHIFT, REFUSED TO EAT MEALS, STATES "I ATE YESTERDAY" ONLY EATS ICE CREAM AND POPSICLES, OOB TO CHAIR TODAY, HAD ST EVAL, LLQ AND LUQ DRAIN DRESSINGS CHANGED X2 TODAY, WOUND VAC DRESSING, OSTOMY AND DRAIN DRESSINGS CHANGED BY LOGGING SUPERINTENDENT, MALECOT DRAIN CONNECTED TO DAYTON BULB SUCTION, NO DRAINAGE NOTED IN BULB, NO DRAINAGE NOTED IN VALDOVINOS BAG BEFORE SWITCHED TO DAYTON BULB, CONT. TO HAVE PURULENT DRAINAGE NOTED AROUND MALECOT DRAIN SITE, NO ACUTE CHANGES THIS SHIFT.
[2022-11-12 21:26] LABS: Percent Saturation 9.2 % (15.0-50.0)
[2022-11-13 04:22] LABS: BASOPHILS ABSOLUTE AUTO 0.02 K/mm3 (0.00-0.23); BASOPHILS PERCENT AUTO 0 % (0-2); EOSINOPHILS ABSOLUTE AUTO 0.09 K/mm3 (0.00-0.68); EOSINOPHILS PERCENT AUTO 1 % (0-6); Hematocrit 24.4 % (33.0-51.0); Hemoglobin 7.7 g/dL (11.5-16.0); IMMATURE GRAN ABSOLUTE AUTO 0.08 K/mm3 (0.00-0.10); IMMATURE GRAN PERCENT AUTO 1 % (0-1); LYMPHOCYTES ABSOLUTE AUTO 0.81 K/mm3 (0.84-5.20); LYMPHOCYTES PERCENT AUTO 11 % (21-46); MONOCYTES ABSOLUTE AUTO 0.58 K/mm3 (0.16-1.47); MONOCYTES PERCENT AUTO 8 % (4-13); Mean Corpuscular HGB 25.2 pg (26.0-34.0); Mean Corpuscular HGB Conc 31.6 g/dL (31.5-36.5); Mean Corpuscular Volume 80 fL (80-100); Mean Platelet Volume 11.5 fL (9.1-12.4); NEUTROPHILS ABSOLUTE AUTO 5.89 K/mm3 (1.96-9.15); NEUTROPHILS PERCENT AUTO 79 % (41-73); Platelet Count 343 K/mm3 (150-400); RDW Standard Deviation 54.6 fL (35.1-46.3); Red Blood Cell Count 3.06 M/mm3 (3.80-5.20); White Blood Cell Count 7.47 K/mm3 (4.00-11.30)
[2022-11-13 04:53] LABS: Albumin, Blood 1.4 g/dL (3.4-5.0); Albumin/Globulin Ratio 0.4 (0.8-1.8); Bilirubin, Total 0.4 mg/dL (0.1-1.0); Bun/Creatinine Ratio 12.7 (12.0-20.0); Creatinine, Blood 0.63 mg/dL (0.40-1.00); Globulin, Blood 3.6 g/dL (2.2-4.0); Potassium, Blood 3.5 mmol/L (3.5-5.5)
--- NOTE | 2022-11-13 05:15 | NUR ---
SHIFT SUMMARY AOX3, FORGETFUL. DENIES ABD PAIN OR N/V. 125ML BROWN/GREEN STOOL OUT ILEOSTOMY. MALECOT c BULB SUCTION, NO OUTPUT. WOUND VAC DRESSING CHANGED 11/12, SET TO SX @120MMHG. DAYTON DRAIN c NO OUTPUT. NO APPETITE, VERA LIQUIDS. BP ELEVATED @HS 172/52, MEDICATED c 10MG HYDRALAZINE & BP TRENDED TO 133/52. CALL LIGHT IN REACH & PT ABLE TO MAKE NEEDS KNOWN.
--- NOTE | 2022-11-13 17:15 | NUR ---
SHIFT SUMMARY DAYTON HAS SCANT DRNG; TOSCANO/BROWN IN COLOR. MELEKOT DRAIN UNCHANGED. WOUND VAC w/ SCANT SS FLUID. DENIES PAIN. AT THIS TIME, HAS MET 2/3 GOAL OF ENSURES. HAS GRADUATED FROM USING BSC TO USING FWW TO BATHROOM, BUT DOES FAITGUE HER.
--- NOTE | 2022-11-14 05:11 | NUR ---
SHIFT NOTE PATIENT SLEPT WELL THROUGH THE NIGHT, ORIENTED X4, MAKING NO COMPLAINTS. 5ML FROM DAYTON, 5ML FROM MALACOTT, VERY SMALL AMOUNT REMIANS IN THE WOUND VAC CHAMBER AND LOOKS TO BE UNCHANGED. HTN THIS MORNING TREATED WITH PRNS. NO OTHER ISSUES TO REPORT.
[2022-11-14 05:17] LABS: BASOPHILS ABSOLUTE AUTO 0.03 K/mm3 (0.00-0.23); BASOPHILS PERCENT AUTO 0 % (0-2); EOSINOPHILS ABSOLUTE AUTO 0.09 K/mm3 (0.00-0.68); EOSINOPHILS PERCENT AUTO 1 % (0-6); Hematocrit 25.2 % (33.0-51.0); IMMATURE GRAN PERCENT AUTO 1 % (0-1); LYMPHOCYTES ABSOLUTE AUTO 1.14 K/mm3 (0.84-5.20); LYMPHOCYTES PERCENT AUTO 15 % (21-46); MONOCYTES PERCENT AUTO 8 % (4-13); Mean Corpuscular HGB 24.9 pg (26.0-34.0); Mean Corpuscular HGB Conc 31.7 g/dL (31.5-36.5); Mean Corpuscular Volume 79 fL (80-100); Mean Platelet Volume 10.9 fL (9.1-12.4); NEUTROPHILS ABSOLUTE AUTO 5.58 K/mm3 (1.96-9.15); NEUTROPHILS PERCENT AUTO 74 % (41-73); Platelet Count 369 K/mm3 (150-400); RDW Coefficient Variation 19.2 % (11.7-14.2); RDW Standard Deviation 54.1 fL (35.1-46.3); Red Blood Cell Count 3.21 M/mm3 (3.80-5.20); White Blood Cell Count 7.54 K/mm3 (4.00-11.30)
[2022-11-14 05:41] LABS: Albumin, Blood 1.5 g/dL (3.4-5.0); Albumin/Globulin Ratio 0.4 (0.8-1.8); Bilirubin, Total 0.2 mg/dL (0.1-1.0); Bun/Creatinine Ratio 13.2 (12.0-20.0); Creatinine, Blood 0.61 mg/dL (0.40-1.00); Globulin, Blood 3.6 g/dL (2.2-4.0); Potassium, Blood 3.6 mmol/L (3.5-5.5); Total Protein, Blood 5.1 g/dL (6.4-8.2)
--- NOTE | 2022-11-14 16:28 | NUR ---
SHIFT SUMMARY POD 13 COLECTOMY WITH ILEOSTOMY. ILEOSTOMY OUTPUT NO LONGER LIQUID. ILEOSTOMY AND WOUNDVAC DRESSING CHANGED BY WOUND CARE TODAY. REMAINS CDI, WOUND VAC SET TO 120. NO DRAINAGE FROM DRAINS TODAY. PT UP IN CHAIR DURING SHIFT TOLERATED. ENCOURAGING INPUT, PT DRINKING ENSURE FOR MEALS. REPORTS THAT HOSPITAL FOOD IS NOT APPETIZING TO HER. FAMILY BRINGING IN SNACKS AND TREATS THAT SHE LIKES TO EAT. CONTINUING TO ENCOURAGE MOBILIZATION.
--- NOTE | 2022-11-14 16:32 | NUR ---
WOUND CARE WOUND VAC DRESSING CHANGED TODAY. TWO PIECES OF BLACK FOAM REMOVED, WOUND CLEANSED NS, THREE PIECES BLACK FOAM REAPPLIED VAC SET TO CONTINUOUS 120MMHG. NOTED UNDERMINING HAS COME IN FROM 4CM TO 3.5. PERIWOUND INTACT. INCISION SUPERIOR TO DEHISCHENCE IS APPROXIMATED, NO DRAINAGE NOTED. OSTOMY APPLIANCE CHANGED. STOMA IS RED AND MOIST. PROTRUDES 0.7CM. PERISKIN IS INTACT. EDUCATION ON NUTRITION FOR WOUND HEALING AND WAYS TO INCREASE INTAKE WE INDENTIFIED BARRIERS WITH PT AND DAUGHTER. PT REPORTS SHE DOES NOT LIKE FOOD THAT SHE IS GIVEN. SHE HAS NOT BEEN FILLING OUT DAILY MENU. SET GOAL FOR HER TO FILL OUT MENUS EACH DAY. WE IDENTIFIED FOODS THAT SHE COULD HAVE BEDSIDE. HER DAUGHTER HAS AGREED TO BRING IN ILIOSTOMY APPROPRIATE FOODS PT CAN HAVE BEDSIDE INCLUDING MICROWAVABLE SOUPS THAT SHE ENJOYS. PT REPORTS SHE DOES NOT WANT TO BOTHER STAFF. REINFORCED THAT ADEQUATE NUTRITION IS A GOAL FOR STAFF AND WE WOULD BE HAPPY TO ASSIST WITH ANYTHING THAT WILL HELP PT MEET NUTRITIONAL NEEDS. REINFORCED THAT BITES COUNT AND THAT SHE DOES NOT HAVE TO HAVE FULL MEALS IF OVERWHELMING BUT THAT BITES THROUGHOUT THE DAY WILL BE BENEFICIAL EVEN IF SHE DOESNT FEEL HUNGRY. PT AND DAUGHTER VERBALIZE UNDERSTANDING AND ARE HAPPY WITH GOALS SET
--- NOTE | 2022-11-15 02:27 | NUR ---
PATIENT MOVED TO ROOM 210, ORIENTED TO ROOM, BELONGINGS IN DRAWER, PATIENT REPOSITIONED, DRAINS CHECKED AND OSTOMY EMPTIED. CALL LIGHT IN REACH.
--- NOTE | 2022-11-15 05:37 | NUR ---
SUMMARY PT AOX3-4 FORGETFUL AT TIMES. MIDLINE WITH MERCY AND WOUNDVAC C/D/I. ILEOSTOMY STOMA WNL. OUTPUT IS GETTING THICKER, MORE PASTE LIKE CONSISTENCY. MALECOT DRAIN INTACT WITH SCANT BROWN DRAINAGE, BULB IS COMPRESSED. DAYTON DRAIN WITH SCANT BROWN DRAINAGE, BULB IS COMPRESSED. WOUND VAC SEAL AND SX INTACT, SETTINGS AT 120, DRAINAGE IS SEROUSAGUINEOUS. PATIENT IS SBA, GB, FWW TO CHAIR AND BSC. VOIDING WELL. IV INFUSING ABX AND FLUIDS TKO. PATIENT DENIES PAIN, SOB, N/V. DOES REPORT LOW APPETITE BUT IS SIPPING ON ENSURE.VSS, USES CALL LIGHT APPROPRIATELY. WILL REPORT TO DAY RN.
[2022-11-15 06:48] LABS: BASOPHILS ABSOLUTE AUTO 0.05 K/mm3 (0.00-0.23); BASOPHILS PERCENT AUTO 1 % (0-2); EOSINOPHILS ABSOLUTE AUTO 0.11 K/mm3 (0.00-0.68); EOSINOPHILS PERCENT AUTO 2 % (0-6); Hematocrit 26.3 % (33.0-51.0); Hemoglobin 8.2 g/dL (11.5-16.0); IMMATURE GRAN ABSOLUTE AUTO 0.13 K/mm3 (0.00-0.10); IMMATURE GRAN PERCENT AUTO 2 % (0-1); LYMPHOCYTES ABSOLUTE AUTO 1.08 K/mm3 (0.84-5.20); LYMPHOCYTES PERCENT AUTO 15 % (21-46); MONOCYTES ABSOLUTE AUTO 0.53 K/mm3 (0.16-1.47); MONOCYTES PERCENT AUTO 7 % (4-13); Mean Corpuscular HGB 25.1 pg (26.0-34.0); Mean Corpuscular HGB Conc 31.2 g/dL (31.5-36.5); Mean Corpuscular Volume 80 fL (80-100); Mean Platelet Volume 11.6 fL (9.1-12.4); NEUTROPHILS ABSOLUTE AUTO 5.32 K/mm3 (1.96-9.15); NEUTROPHILS PERCENT AUTO 74 % (41-73); Platelet Count 406 K/mm3 (150-400); RDW Coefficient Variation 19.5 % (11.7-14.2); Red Blood Cell Count 3.27 M/mm3 (3.80-5.20); White Blood Cell Count 7.22 K/mm3 (4.00-11.30)
[2022-11-15 06:53] LABS: Bun/Creatinine Ratio 10.2 (12.0-20.0); Calcium, Blood 8.1 mg/dL (8.5-10.1); Creatinine, Blood 0.69 mg/dL (0.40-1.00); Potassium, Blood 3.7 mmol/L (3.5-5.5)
--- NOTE | 2022-11-15 20:01 | NUR ---
SHIFT SUMMARY POD14 SUBTOTAL COLECTOMY c ILIOSTOMY PLACEMENT, OUTPUT IS SLIGHTLY PASTY BUT STILL PRETTY LIQUIDY. SHE DENIES PAIN THIS SHIFT, DOES WELL c AMBULATING, WV INTACT, ILIOSTOMY IN PLACE AND NO LEAKS THIS SHIFT. MINIMAL OUTPUT FROM BOTH DRAINS IN LLQ. NO ACUTE EVENTS THIS SHIFT, CALL LIGHT IN REACH, REPORT GIVEN TO YURIY DICK.
--- NOTE | 2022-11-16 04:54 | NUR ---
SHIFT SUMMARY: PODx15 EX LAP WITH SUBTOTAL COLECTOMY WITH ILEOSTOMY. ILEOSTOMY CONTINUES TO HAD BROWN/GREEN OUTPUT THAT IS LIQUID/PASTY. DAYTON AND MALECOT DRAINED APPROXIMATELY 10 CC. DAYTON PRODUCED BROWN THIN LIQUID. MALECOT PRODUCED PURULENT DRAINAGE. PT DENIED PAIN T/O SHIFT. TOLERATING PO FLUIDS AND FOOD AT THIS TIME. AMB WITH SBA AND FWW/GAIT BELT TO BR. WOUND VAC REMAINS IN PLACE. PT RESTING WITH CALL LIGHT IN REACH. WILL GIVE REPORT TO DAY TIME RN.
[2022-11-16 05:16] LABS: BASOPHILS ABSOLUTE AUTO 0.03 K/mm3 (0.00-0.23); BASOPHILS PERCENT AUTO 0 % (0-2); EOSINOPHILS ABSOLUTE AUTO 0.12 K/mm3 (0.00-0.68); EOSINOPHILS PERCENT AUTO 2 % (0-6); Hematocrit 25.7 % (33.0-51.0); IMMATURE GRAN PERCENT AUTO 1 % (0-1); LYMPHOCYTES ABSOLUTE AUTO 1.39 K/mm3 (0.84-5.20); LYMPHOCYTES PERCENT AUTO 18 % (21-46); MONOCYTES ABSOLUTE AUTO 0.61 K/mm3 (0.16-1.47); MONOCYTES PERCENT AUTO 8 % (4-13); Mean Corpuscular HGB 25.2 pg (26.0-34.0); Mean Corpuscular HGB Conc 31.1 g/dL (31.5-36.5); Mean Corpuscular Volume 81 fL (80-100); Mean Platelet Volume 11.4 fL (9.1-12.4); NEUTROPHILS PERCENT AUTO 71 % (41-73); Platelet Count 379 K/mm3 (150-400); RDW Coefficient Variation 19.4 % (11.7-14.2); Red Blood Cell Count 3.17 M/mm3 (3.80-5.20); White Blood Cell Count 7.65 K/mm3 (4.00-11.30)
[2022-11-16 06:14] LABS: Bun/Creatinine Ratio 8.3 (12.0-20.0); Calcium, Blood 8.1 mg/dL (8.5-10.1); Creatinine, Blood 0.6 mg/dL (0.40-1.00); Potassium, Blood 3.7 mmol/L (3.5-5.5)
--- NOTE | 2022-11-16 11:38 | NUR ---
WOUND CARE WOUND VAC DRESSING CHANGED. ONE PIECE BLACK FOAM REMOVED, WOUND CLEANSED NS, TWO PIECES BLACK FOAM REAPPLIED. VAC SET TO CONTINUOUS 120MMHG. SUPERIOR INCISION IS APPROXIMATED. R LATERAL UNDERMINING IN FROM 3.5 TO 3.0CM WOUND BED GRANULATING AND CONTINUES TO SHOW IMPROVEMENT. OSTOMY APPLIANCE CHANGED. STOMA IS RED, MOIST AND PROTRUDES O.7 CM. PERISKIN INTACT. DRAINS CLEANSED AND SPIT GAUZE APPLIED. PT TOLERATED WELL
[2022-11-17 04:48] LABS: BASOPHILS ABSOLUTE AUTO 0.03 K/mm3 (0.00-0.23); BASOPHILS PERCENT AUTO 0 % (0-2); EOSINOPHILS ABSOLUTE AUTO 0.11 K/mm3 (0.00-0.68); EOSINOPHILS PERCENT AUTO 1 % (0-6); Hematocrit 28.4 % (33.0-51.0); Hemoglobin 8.7 g/dL (11.5-16.0); IMMATURE GRAN ABSOLUTE AUTO 0.12 K/mm3 (0.00-0.10); IMMATURE GRAN PERCENT AUTO 1 % (0-1); LYMPHOCYTES ABSOLUTE AUTO 1.03 K/mm3 (0.84-5.20); LYMPHOCYTES PERCENT AUTO 12 % (21-46); MONOCYTES ABSOLUTE AUTO 0.61 K/mm3 (0.16-1.47); MONOCYTES PERCENT AUTO 7 % (4-13); Mean Corpuscular HGB 24.7 pg (26.0-34.0); Mean Corpuscular HGB Conc 30.6 g/dL (31.5-36.5); Mean Corpuscular Volume 81 fL (80-100); Mean Platelet Volume 10.8 fL (9.1-12.4); NEUTROPHILS ABSOLUTE AUTO 6.69 K/mm3 (1.96-9.15); NEUTROPHILS PERCENT AUTO 78 % (41-73); Platelet Count 391 K/mm3 (150-400); RDW Coefficient Variation 19.5 % (11.7-14.2); RDW Standard Deviation 56.6 fL (35.1-46.3); Red Blood Cell Count 3.52 M/mm3 (3.80-5.20); White Blood Cell Count 8.59 K/mm3 (4.00-11.30)
[2022-11-17 05:09] LABS: Bun/Creatinine Ratio 7.7 (12.0-20.0); Calcium, Blood 8.2 mg/dL (8.5-10.1); Creatinine, Blood 0.65 mg/dL (0.40-1.00); Potassium, Blood 3.5 mmol/L (3.5-5.5)
--- NOTE | 2022-11-17 06:22 | NUR ---
SHIFT SUMMARY: PODx15 EX LAP WITH SUBTOTAL COLECTOMY AND ILEOSTOMY. ILEOSTOMY PUTTING OUT GREEN/BROWN DRAINAGE. DAYTON DRAIN AND MALECOT CONTINUES TO HAVE LOW OUTPUT. DENIED PAIN T/O THE NIGHT. TOLERATING SMALL AMOUNTS OF SNACKS. REPORTS A SLIGHTLY INCREASED APPETITE. RESTING AT THIS TIME WITH CALL LIGHT IN REACH.
--- NOTE | 2022-11-17 08:37 | NUR ---
ILEOSTOMY LEAKED INTO SURROUNDING TAPE, GAUZE, AND UNDER WOUND VAC. BAG REPLACED, WOUND VAC REPLACED, AND GAUZE/TEGADERM WERE REPLACED. SUCTION NOTED, SET TO 120 ON WOUND VAC. DUE TO LEAKAGE, DRESSINGS NEEDED TO BE CHANGED DUE TO DRAINAGE.
--- NOTE | 2022-11-18 04:40 | NUR ---
SHIFT SUMMARY: PODx16 EX LAP WITH SUBTOTAL COLECTOMY WITH ILEOSTOMY. ILEOSTOMY PUTTING OUT MODERATE AMOUNT OF GREEN/BROWN FLUID AND OCCASSIONAL THICK OUTPUT. DAYTON AND MALECOT CONTINUE TO PUT OUT VERY MINIMAL OUTPUT. WOUND VAC REMAINS SET AT 120. PT ENCOURAGED TO DRINK PO FLUIDS AND ENGAGE IN ILEOSTOMY CARE. PT RESTED COMFORTABLY T/O THE NIGHT. VSS. NO ACUTE CHANGES OVERNIGHT. PT RESTING AT THIS TIME WITH CALL LIGHT IN REACH.
--- NOTE | 2022-11-18 18:48 | NUR ---
SHIFT SUMMARY PT A&OX4, VSS/RA, VERA PO-LOW PO INTAKE, VOIDING WELL, DENIES PAIN, SBA FWW TO BRP. POD16 COLECTOMY W/ILEOSTOMY, MIDLINE WOUND VAC GAUZE & TEGADERM W/DAYTON AND MALECOTT DRAIN (2 MLS OUT OF EACH), ILEOSTOMY MANAGED BY PATIENT T/O SHIFT. WILL REPORT TO ONCOMING NOC RN.
[2022-11-19 04:16] LABS: Hematocrit 27.7 % (33.0-51.0); Hemoglobin 8.6 g/dL (11.5-16.0)
[2022-11-19 04:34] LABS: Bun/Creatinine Ratio 14.6 (12.0-20.0); Calcium, Blood 8.5 mg/dL (8.5-10.1); Creatinine, Blood 0.82 mg/dL (0.40-1.00); Potassium, Blood 4.1 mmol/L (3.5-5.5)
--- NOTE | 2022-11-19 07:12 | NUR ---
SUMMARY PT REMAINS A&O X4, ON RA, VSS. SHE HAS BEEN ABLE TO REST THROUGH THE NIGHT W/NO PAIN, PT HAS BEEN ATTEMPTING TO MANAGE HER ILEOSTOMY BUT STILL NEEDS MOTIVATED. DRSG'S C/D/I, NO OUTPUT FROM THE DAYTON OR MALCOTT DRAIN, TOLERATING PO INTAKE, VOIDING WNL. CALL LIGHT IN REACH
--- NOTE | 2022-11-19 11:57 | NUR ---
WOUND CARE MIDLINE WOUND VAC DRESSING CHANGED. NOTED LEAK FROM OSTOMY TO VAC. PERISKIN BETWEEN WOUND VAC AND OSTOMY IRRITATED WITH MILD BREAKDOWN. CLEANSED WELL WITH DERMAL WOUND, RINSED NS, PAT DRY. SKIN PREP THEN WINDOWPANED WITH TRANSPARENT FILM. ONE PIECE BLACK FOAM REMOVED, TWO PIECES BLACK FOAM REAPPLIED. TRANSPARENT FILM OVER BLACK FOAM WITH A HOLE CUT FOR WOUND VAC DRAIN. VAC SET TO CONTINUOUS 120 MMHG WITH GOOD SEAL ACHIEVED. HYROCOLLOID PLACED OVER TRANSPARENT FILM BETWEEN VAC AND OSTOMY, THEN CERA RING AND OSTOMY APPLIANCE PLACED. DRAINS CLEANSED AND COVERED WITH SPLIT GAUZE. NEW PHOTO AND ASSESSMENT IN HARD CHART. PT TOLERATED WELL
--- NOTE | 2022-11-19 15:42 | NUR ---
SHIFT SUMMARY NO ACUTE CHANGES THIS SHIFT. ILEOSTOMY HAS HAD MODERATE AMOUNTS OF LIQUID BROWN/GREEN OUTPUT. POOR PO INTAKE, ENCOURAGING. UP TO EDGE OF BED FOR MEALS, AMMBULATING WELL WITH SBA FROM STAFF. ABDOMINAL DRESSING/WOUND VAC CHANGED THIS SHIFT BY MACHINE STAMPER RODRÍGUEZ. PATIENT HAS DENIED PAIN T/O SHIFT. CALLS APPROPRIATELY, IN REACH. WILL CONTINUE TO MONITOR & REPORT TO ONCOMING RN AT 1900.
--- NOTE | 2022-11-20 04:12 | NUR ---
SHIFT SUMMARY NO ACUTE CHANGES. PT RESTED WELL. PT INDEPENDENTLY BURPING/EMPTYING OSTOMY. OSTOMY WITH BROWN LIQ STOOL. WOUND VAC REMAINS IN PLACE AND COMPRESSED. DAYTON + MALCOTT DRAINS WITH SMALL AMOUNTS OF TABARES DRAINAGE. PT DENIES ABD PAIN. SBA WHEN OOB. CALL LIGHT WITHIN REACH.
--- NOTE | 2022-11-20 12:17 | NUR ---
PATIENT CONSISTENTLY DECLINING MEAL TRAY, STATES SHE HAS NO APPETITE, IS NOT HUNGRY AND DOES NOT WANT ANY OF IT. THIS RN ENCOURAGED PO INTAKE AND DISCUSSED IMPORTANCE OF NUTRITION FOR WOUND HEALING. PATIENT STATED "I KNOW" AND CONTINUED TO REFUSE TRAY.
--- NOTE | 2022-11-20 17:04 | NUR ---
SHIFT SUMMARY NO ACUTE CHANGES THIS SHIFT. PATIENT AMBULATED IN HALLWAYS X2 TIMES, WITH ENCOURAGMENT. CONTINUES TO HAVE POOR PO INTAKE WITH POOR APPETITE, ENCOURAGING PO INTAKE AND EDUCATED ON IMPORTANCE FOR WOUND HEALING. WOUND VAC REMAINS INTACT. BOTH DRAINS HAVE LOW OUTPUT, TABARES/GUERRA IN COLOR. OSTOMY HAS HAD MODERATE AMOUNTS OF LOOSE/SOFT STOOL, BROWN IN COLOR. PATIENT DENIES PAIN. PATIENT ANXIOUS TO BE DC'D. CALLS APPROPRIATELY, WILL REPORT TO ONCOMING RN AT 1900.
--- NOTE | 2022-11-21 04:19 | NUR ---
SHIFT SUMMARY NO ACUTE CHANGES. PT RESTED WELL. PT INDEPENDENTLY BURPING/EMPTYING OSTOMY. OSTOMY WITH BROWN LIQ STOOL. WOUND VAC REMAINS IN PLACE AND COMPRESSED. DAYTON + MALCOTT DRAINS WITH SCANT AMOUNTS OF TABARES DRAINAGE. PT DENIES ABD PAIN. SBA WHEN OOB TO RESTROOM. CALL LIGHT WITHIN REACH.
--- NOTE | 2022-11-21 11:36 | NUR ---
WOUND CARE WOUND VAC DRESSING CHANGED. TWO PIECES BLACK FOAM REMOVED, CLEANSED WITH NS. PAT DRY. EAKINS RING TO NAVEL, 2X2 GAUZE TO INCISION LINE SUPERIOR TO WOUND. INCISION LINE AND PERIWOUND DRAPED WITH TRANSPARENT FILM. ONE PIECE OF BLACK FOAM TO WOUND BED, COVERED WITH TRANSPARENT FILM THEN TUBING. VAC SET TO CONTINUOUS 120 MMHG. GOOD SEAL ACHIEVED. HYDROCOLLOID STRIP PLACE OVER TRANSPARENT FILM BETWEEN OSTOMY AND VAC TO ALLOW GOOD OSTOMY APPLIANCE ADHERENCE. OSTOMY APPLIANCE CHANGED. STOMA IS RED, MOIST AND PROTRUDES 0.6CM. PERISKIN IS INTACT. EAKINS RING THEN 57 3/4 APPLIANCE. DRAINS CLEANSED AND SECURED WITH SPLIT GAUZE/TAPE. PT TOLERATED WELL
--- NOTE | 2022-11-21 18:05 | NUR ---
SHIFT SUMMARY PT AXO X4, PLEASANT THOUGH ONLY AGREED TO OOB X2 THIS SHIFT. PT WAS NOT REPOSITIONING HERSELF OR TURNING IN BED. THIS NURSE EDUCATED PATIENT ABOUT THE PREVENTION OF PRESSURE ULCERS AND PLACED A MEPILEX ON COCCYX FOR PREVENTION. VSS. NO OTHER CHANGES THIS SHIFT. IV PATENT AND SALINE LOCKED. BED IN LOW POSITION, CALL LIGHT WITHIN REACH. DR ALMONTE IN TO ASSESS PT DRAINS. HE INSTRUCTED NURSE THAT THE DRAINS WILL STAY IN PLACE AT TIME OF DISCHARGE AND PATIENT SHOULD FOLLOW UP WITH HIM OUTPATIENT.
--- NOTE | 2022-11-22 04:36 | NUR ---
SHIFT SUMMARY: PT DENIED PAIN T/O THE SHIFT. PT ABLE TO AMB WITH SBA WITH FWW/GAIT BELT TO THE BR. WAS ABLE TO STAND AT BEDSIDE AND SIT IN A CHAIR. STILL HAS A DECREASED APPETITE, ENCOURAGED SNACKING. MEPILEX ON COCCYX WAS CHANGED, ENCOURAGED REPOSITIONING. ILEOSTOMY CONITNUES TO HAVE BROWN OUTPUT. DAYTON AND MALECOT CONTINUE TO HAVE MINIMAL OUTPUT. WOUND VAC REMAINS IN PLACE ON INFERIOR PORTION OF INCISION AND IS SET TO 120. PLANS TO POTENTIALLY DC TO [facility] TODAY. PT RESTING WITH CALL LIGHT IN REACH. WILL GIVE REPORT TO DAY TIME RN.
[2022-11-22 11:01] LABS: Influenza A, PCR NEGATIVE (NEGATIVE); Influenza B, PCR NEGATIVE (NEGATIVE); Resp Syncytial Virus, PCR NEGATIVE (NEGATIVE); SARS-Cov-2 (COVID-19) PCR, MMC NEGATIVE (NEGATIVE)
--- NOTE | 2022-11-22 11:39 | NUR ---
1130 REPORT CALLED TO MEGAN AT [facility]. PT IN AGREEMENT WITH TRANSFER PLAN. PT TRANSFERED VIA WHEELCHAIR WITH NON EMERGENCY TRANSPORT. MALECOT DRAININ PLACE AND SECURED. DAYTON IN PLACE AND SECURE. WOUND VAC INTACT AND CLAMPED FOR TRANSPORT.
== END 2022-11-22 11:40 | DRG 330 ==
LOC: ER 09:22 → MEDS 09:23 → SURS 10-31 15:48 → MEDS 10-31 15:48 → ICUE 10-31 15:48 → MEDS 10-31 15:49 → SURS 11-01 10:25 → ICUE 11-01 14:16 → SURS 11-02 12:21
PROVIDERS: Emergency Medicine; Family Medicine; Nurse Practitioner Acute Care; Student in an Organized Health Care Education/Training Program; Surgery; ADMIT Internal Medicine
PROC: 0DTG0ZZ Resection of Left Large Intestine, Open Approach (ICD-10-PCS; 2022-11-01)
PROC: 0DBU0ZZ Excision of Omentum, Open Approach (ICD-10-PCS; 2022-11-01)
PROC: 0W9G0ZZ Drainage of Peritoneal Cavity, Open Approach (ICD-10-PCS; 2022-11-01)
PROC: 0DNW0ZZ Release Peritoneum, Open Approach (ICD-10-PCS; 2022-11-01)
PROC: 0DN80ZZ Release Small Intestine, Open Approach (ICD-10-PCS; 2022-11-01)
PROC: 0DQ80ZZ Repair Small Intestine, Open Approach (ICD-10-PCS; 2022-11-01)
PROC: 0D1B0Z4 Bypass Ileum to Cutaneous, Open Approach (ICD-10-PCS; 2022-11-01)
PROC: 0DJD0ZZ Inspection of Lower Intestinal Tract, Open Approach (ICD-10-PCS; principal; 2022-11-01 10:30)
PROC: 0DB80ZZ Excision of Small Intestine, Open Approach (ICD-10-PCS; 2022-11-01 10:30)
PROC: 0DTF0ZZ Resection of Right Large Intestine, Open Approach (ICD-10-PCS; 2022-11-01 10:30)
PROC: 0DH67UZ Insertion of Feeding Device into Stomach, Via Natural or Artificial Opening (ICD-10-PCS; 2022-11-02)
PROC: 30233N1 Transfusion of Nonautologous Red Blood Cells into Peripheral Vein, Percutaneous Approach (ICD-10-PCS; 2022-11-09)
DX: K63.1 Perforation of intestine (nontraumatic) (principal); E44.1 Mild protein-calorie malnutrition; E87.0 Hyperosmolality and hypernatremia; K56.50 Intestinal adhesions [bands], unspecified as to partial versus complete obstruction; K91.71 Accidental puncture and laceration of a digestive system organ or structure during a digestive system procedure; Z66 Do not resuscitate; E78.5 Hyperlipidemia, unspecified; I10 Essential (primary) hypertension; E88.09 Other disorders of plasma-protein metabolism, not elsewhere classified; E87.6 Hypokalemia; E77.8 Other disorders of glycoprotein metabolism; D72.819 Decreased white blood cell count, unspecified; F17.210 Nicotine dependence, cigarettes, uncomplicated; D63.8 Anemia in other chronic diseases classified elsewhere; K52.9 Noninfective gastroenteritis and colitis, unspecified; J43.9 Emphysema, unspecified; E87.8 Other disorders of electrolyte and fluid balance, not elsewhere classified; E86.0 Dehydration; R63.4 Abnormal weight loss; Z20.822 Contact with and (suspected) exposure to COVID-19; Z68.21 Body mass index [BMI] 21.0-21.9, adult; Z98.890 Other specified postprocedural states; Z90.49 Acquired absence of other specified parts of digestive tract; Z79.899 Other long term (current) drug therapy; Z79.82 Long term (current) use of aspirin; Z79.02 Long term (current) use of antithrombotics/antiplatelets
CPT/HCPCS: 0241U; 36415; 36430; 74018; 74176; 80048; 80053; 81001; 82378; 82728; 83540; 83550; 83735; 84100; 84132; 84145; 85014; 85018; 85025; 85027; 85610; 86140; 86304; 86850; 86900; 86901; 86923; 88307; 92523; 93005; 93010; 94760; 96361; 96372; 96374; 96375; 97110; 97116; 97161; 97530; 99285-25; A9270; G0378; J0171; J0360; J1100; J1170; J1650; J2370; J2405; J2543; J2550; J2704; J3010; J3475; J3480; J7030; J7050; J7120; P9016

== ENCOUNTER 2022-11-23 02:29 | Day surgery (SDC) | payer MEDICARE ==
[~2022-11-23 02:29] MED LIST changes: +ATOR10 PO; +CARVEDILOL6.25 MG PO
== END 2022-11-23 22:57 | disposition home or self-care (01) ==
LOC: WOUND 02:29
DX: T81.32XA Disruption of internal operation (surgical) wound, not elsewhere classified, initial encounter (principal); K63.1 Perforation of intestine (nontraumatic); Z93.2 Ileostomy status; Z48.815 Encounter for surgical aftercare following surgery on the digestive system
CPT/HCPCS: A9270; G0463

== ENCOUNTER 2022-12-07 02:04 | Day surgery (SDC) | payer MEDICARE | END 2022-12-07 22:47 | disposition home or self-care (01) | LOC: WOUND 02:04 | DX: S31.105D Unspecified open wound of abdominal wall, periumbilic region without penetration into peritoneal cavity, subsequent encounter (principal); T81.31XD Disruption of external operation (surgical) wound, not elsewhere classified, subsequent encounter; K63.1 Perforation of intestine (nontraumatic); Z93.2 Ileostomy status; Z48.815 Encounter for surgical aftercare following surgery on the digestive system | CPT/HCPCS: G0463 ==

== ENCOUNTER 2022-12-07 08:03 | Inpatient (IN) | payer MEDICARE ==
[~2022-12-07] VITALS: Ht 157.5 cm; Wt 45.4 kg
[2022-12-07 10:26] LABS: International Normalized Ratio 1.04; Prothrombin Time Results 10.9 Sec (9.7-11.5)
[2022-12-07 11:14] LABS: Albumin, Blood 1.7 g/dL (3.4-5.0); Albumin/Globulin Ratio 0.4 (0.8-1.8); Bilirubin, Direct 0.2 mg/dL (0.0-0.3); Bilirubin, Indirect 0.1 mg/dL (0.1-0.7); Bilirubin, Total 0.3 mg/dL (0.1-1.0); Globulin, Blood 4.3 g/dL (2.2-4.0); Magnesium, Blood 1.6 mg/dL (1.6-2.4)
[2022-12-07 12:10] LABS: BASOPHILS ABSOLUTE AUTO 0.03 K/mm3 (0.00-0.23); BASOPHILS PERCENT AUTO 0 % (0-2); EOSINOPHILS PERCENT AUTO 0 % (0-6); Hematocrit 26.9 % (33.0-51.0); Hemoglobin 8.4 g/dL (11.5-16.0); IMMATURE GRAN ABSOLUTE AUTO 0.12 K/mm3 (0.00-0.10); IMMATURE GRAN PERCENT AUTO 1 % (0-1); LYMPHOCYTES ABSOLUTE AUTO 0.85 K/mm3 (0.84-5.20); LYMPHOCYTES PERCENT AUTO 9 % (21-46); MONOCYTES ABSOLUTE AUTO 0.54 K/mm3 (0.16-1.47); MONOCYTES PERCENT AUTO 6 % (4-13); Mean Corpuscular HGB 24.8 pg (26.0-34.0); Mean Corpuscular HGB Conc 31.2 g/dL (31.5-36.5); Mean Corpuscular Volume 79 fL (80-100); Mean Platelet Volume 9.7 fL (9.1-12.4); NEUTROPHILS ABSOLUTE AUTO 8.27 K/mm3 (1.96-9.15); NEUTROPHILS PERCENT AUTO 84 % (41-73); Platelet Count 320 K/mm3 (150-400); RDW Coefficient Variation 18.5 % (11.7-14.2); RDW Standard Deviation 53.1 fL (35.1-46.3); Red Blood Cell Count 3.39 M/mm3 (3.80-5.20); White Blood Cell Count 9.81 K/mm3 (4.00-11.30)
[2022-12-07 12:39] LABS: Albumin, Blood 1.5 g/dL (3.4-5.0); Albumin/Globulin Ratio 0.4 (0.8-1.8); Bilirubin, Total 0.4 mg/dL (0.1-1.0); Bun/Creatinine Ratio 44.3 (12.0-20.0); Calcium, Blood 7.9 mg/dL (8.5-10.1); Creatinine, Blood 0.93 mg/dL (0.40-1.00); Globulin, Blood 4.2 g/dL (2.2-4.0); Potassium, Blood 4.1 mmol/L (3.5-5.5); Total Protein, Blood 5.7 g/dL (6.4-8.2)
[2022-12-07 13:27] LABS: BAND PERCENT MAN 16 % (0-8); BASOPHILS PERCENT MAN 1 % (0-2); EOSINOPHILS PERCENT MAN 0 % (0-6); LYMPHOCYTES PERCENT MAN 7 % (21-46); MONOCYTES PERCENT MAN 3 % (4-13); SEG NEUTROPHILS PERCENT MAN 73 % (41-73); TOTAL CELLS COUNTED 100
[2022-12-07 13:45] LABS: LYMPHOCYTES ABSOLUTE MAN 0.76 K/mm3 (0.84-5.20); MONOCYTES ABSOLUTE MAN 0.32 K/mm3 (0.16-1.47); NEUTROPHILS ABSOLUTE MAN 9.78 K/mm3 (1.96-9.15); White Blood Cell Count 10.99 K/mm3 (4.00-11.30)
[2022-12-07 13:46] LABS: Hematocrit 28.1 % (33.0-51.0); Hemoglobin 8.8 g/dL (11.5-16.0); Mean Corpuscular HGB 24.8 pg (26.0-34.0); Mean Corpuscular HGB Conc 31.3 g/dL (31.5-36.5); Mean Corpuscular Volume 79 fL (80-100); RDW Coefficient Variation 18.3 % (11.7-14.2); RDW Standard Deviation 52.7 fL (35.1-46.3); Red Blood Cell Count 3.55 M/mm3 (3.80-5.20)
[2022-12-07 13:47] LABS: BASOPHILS PERCENT AUTO 0 % (0-2); EOSINOPHILS PERCENT AUTO 0 % (0-6); IMMATURE GRAN PERCENT AUTO 2 % (0-1); LYMPHOCYTES PERCENT AUTO 8 % (21-46); MONOCYTES PERCENT AUTO 4 % (4-13); Mean Platelet Volume 10.3 fL (9.1-12.4); NEUTROPHILS PERCENT AUTO 86 % (41-73); Platelet Count 363 K/mm3 (150-400)
[2022-12-07 13:48] LABS: BASOPHILS ABSOLUTE AUTO 0.02 K/mm3 (0.00-0.23); EOSINOPHILS ABSOLUTE AUTO 0.01 K/mm3 (0.00-0.68); IMMATURE GRAN ABSOLUTE AUTO 0.21 K/mm3 (0.00-0.10); LYMPHOCYTES ABSOLUTE AUTO 0.89 K/mm3 (0.84-5.20); MONOCYTES ABSOLUTE AUTO 0.39 K/mm3 (0.16-1.47); NEUTROPHILS ABSOLUTE AUTO 9.47 K/mm3 (1.96-9.15)
[2022-12-07 16:54] VITALS: BP 100/54
--- NOTE | 2022-12-07 18:16 | NUR ---
SHIFT SUMMARY PT A&OX4, VSS/RA, VERA PO - LOW PO INTAKE, VOIDING/BSC, BEDREST/REPOSITIONS SELF, DENIES PAIN. S/P COLECTOMY WITH ILEOSTOMY W/OUTPUT, 2 DRAINS LEFT ABD: DAYTON 10 MLS, MALLICOTT DRAIN IN RECTAL STUMP WITH SCANT BROWN OUTPUT. WILL REPORT TO ONCOMING NOC RN.
[2022-12-07 20:44] VITALS: BP 102/52
[2022-12-07 23:50] VITALS: BP 114/55
[2022-12-08 04:03] LABS: Hematocrit 27.8 % (33.0-51.0); Hemoglobin 8.5 g/dL (11.5-16.0); Mean Corpuscular HGB 24.9 pg (26.0-34.0); Mean Corpuscular HGB Conc 30.6 g/dL (31.5-36.5); Mean Corpuscular Volume 82 fL (80-100); Mean Platelet Volume 10.2 fL (9.1-12.4); Platelet Count 301 K/mm3 (150-400); RDW Coefficient Variation 18.7 % (11.7-14.2); RDW Standard Deviation 55.4 fL (35.1-46.3); Red Blood Cell Count 3.41 M/mm3 (3.80-5.20); White Blood Cell Count 8.53 K/mm3 (4.00-11.30)
[2022-12-08 04:11] VITALS: BP 109/51
[2022-12-08 04:29] LABS: Bun/Creatinine Ratio 35.6 (12.0-20.0); Calcium, Blood 8.3 mg/dL (8.5-10.1); Creatinine, Blood 0.93 mg/dL (0.40-1.00); Potassium, Blood 3.8 mmol/L (3.5-5.5)
--- NOTE | 2022-12-08 05:57 | NUR ---
SHIFT SUMMARY ASSUMED CARE OF PT AT 1900. PT IS A/OX3-4. HEART SOUNDS REGULAR. LUNG SOUNDS CLEAR. PT C/O PAIN AT DRAIN SITES. MALICOT DRAIN SITE IS VERYRED AND TENDER AROUND INSERTION. BROWN, PUS-LIKE, FOWL SMELLING DRAINAGE COMING FROM WOUND. DRESSING CHANGED TWICE. NO DRAINAGE IN COLLECTION. DAYTON DRAIN SITE IS CRUSTED, AND HAS ONE SUTURE LEFT ATTACHED TO SKIN, ALSO NO DRAINAGE. WOUND VAC RUNNING T/O THE NIGHT. DRESSING INTACT. PT HAD NO NEW COMPLAINTS OTHER THAN PAIN AT DRAIN SITE. PT WALKED TO BATHROOM WITH 1P SBA WALKER.
[2022-12-08 07:53] VITALS: BP 130/56
--- NOTE | 2022-12-08 11:08 | NUR ---
AM NOTES: PT'S WOUND VAC FROM THE FACILITY THAT PT CAME FROM WAS NOT WORKING PART OF THE CANISTER WAS BROKEN AND WAS FULL OF DRAINAGE. HOSPITAL WOUND VAC WAS PLACED, PHOTOS IN THE CHART. ILEOSTOMY BAG WAS CHANGED WELL. PT HAS MILKY BROWN FOUL ODOR SMELLING DRAINAGE COMING OUT OF BOTH THE DAYTON DRAIN ON THE LEFT SIDE. DR MOODY CAME IN TO SEE PT ORDERED TO CULTURE DRAINAGE FROM DAYTON DRAIN. PT WAS MEDICATED FOR PAIN 3/10 WHILE CHANGING THE WOUND VAC, PT WITH POOR APPETITE REFUSED BREAKFAST THIS MORNING. PT RECEIVED A BED BATH. NOW RESTING IN BED. LR RUNNING AT 125MLS/HR. VITALS HRR 60'S, SBP 130'S, SATS ABOVE 95% ON RA, AFEBRILE. WILL MONITOR TIL END OF SHIFT
[2022-12-08 11:19] VITALS: BP 120/57
[2022-12-08 16:30] VITALS: BP 111/60
--- NOTE | 2022-12-08 18:07 | NUR ---
PT SUMMARY: SEE AM NOTES. NO ACUTE CHANGE SINCE THIS AM. PER TELE PT HAD EPISODES OF JOSELIN DOWN TO 37 WITH 2.1 SEC PAUSE TWICE, PT WAS ASLEEP DURING THE EPISODES PROVIDER MADE AWARE, TO CHECK O2 LEVELS CONTINUOUSLY WHEN PT IS ASLEEP. VITALS HAS BEEN STABLE, DENIES CHEST PAIN/PRESSURE. PT HAS SOME ABD PAIN IF DRESSING WERE CHANGED OR CLEANED, DAYTON DRAINSTILL DRAINING FOUL SMELLING DRAINAGE WHITE BROWN IN COLOR. SOME DRAINAGE AROUND THE TUBES WELL ABD PADS IN PALCE. WOUND VAC TO SUCTION, NO DRAINAGE SINCE WOUND VAC WAS REPLACED WHIS MORNING ASKED SURGICAL FLOOR NURSE TO COME TAKE A LOOK AT THE WOUND VAC AND VERIFIED THAT THE WOUND VAC IS WORKING. PT RECEIVED A BED BATH, 1PA TO BEDSIDE COMMODE FOR TOILETING. FAMILY CAME IN AND VISITED BROUGHT IN SOME ENSURE DRINKS. NO OTHER ISSUES REPORTED WILL REPORT TO ONCOMMING SHIFT
[2022-12-08 20:08] VITALS: BP 113/51
[2022-12-09] VITALS (7 sets, daily range): BP systolic 109–136; BP diastolic 49–62
[2022-12-09 05:39] LABS: BASOPHILS ABSOLUTE AUTO 0.03 K/mm3 (0.00-0.23); BASOPHILS PERCENT AUTO 1 % (0-2); EOSINOPHILS ABSOLUTE AUTO 0.08 K/mm3 (0.00-0.68); EOSINOPHILS PERCENT AUTO 1 % (0-6); Hematocrit 23.9 % (33.0-51.0); Hemoglobin 7.5 g/dL (11.5-16.0); IMMATURE GRAN ABSOLUTE AUTO 0.08 K/mm3 (0.00-0.10); IMMATURE GRAN PERCENT AUTO 1 % (0-1); LYMPHOCYTES ABSOLUTE AUTO 1.41 K/mm3 (0.84-5.20); LYMPHOCYTES PERCENT AUTO 23 % (21-46); MONOCYTES ABSOLUTE AUTO 0.66 K/mm3 (0.16-1.47); MONOCYTES PERCENT AUTO 11 % (4-13); Mean Corpuscular HGB 24.9 pg (26.0-34.0); Mean Corpuscular HGB Conc 31.4 g/dL (31.5-36.5); Mean Corpuscular Volume 79 fL (80-100); Mean Platelet Volume 9.6 fL (9.1-12.4); NEUTROPHILS ABSOLUTE AUTO 3.99 K/mm3 (1.96-9.15); NEUTROPHILS PERCENT AUTO 64 % (41-73); Platelet Count 340 K/mm3 (150-400); RDW Coefficient Variation 18.7 % (11.7-14.2); RDW Standard Deviation 54.4 fL (35.1-46.3); Red Blood Cell Count 3.01 M/mm3 (3.80-5.20); White Blood Cell Count 6.25 K/mm3 (4.00-11.30)
--- NOTE | 2022-12-09 05:58 | NUR ---
SHIFT SUMMARY ASSUMED CARE OF PT AT 1900. PT IS A/OX4. HEART SOUNDS REGULAR. HR DROPPED TO 39 LAST NIGHT A COUPLE OF TIMES BUT PT WAS ASYMPTOMATIC. LUNG SOUNDS CLEAR, PT DID NOT DESAT WHILE SLEEPING. PT DAYTON DRAIN DRAINING MODERATE AMOUNTS OF BROWN, PUS LIKE FLUID, FOUL SMELLING FLUID. DRESSING CHANGED DURING THE NIGHT. PT C/O PAIN WHEN TOUCHED. PT WAS A 1P ASSIST TO BATHROOM WITH WALKER. CONTINENT OF URINE.
[2022-12-09 06:02] LABS: Albumin, Blood 1.5 g/dL (3.4-5.0); Anion Gap 3 mmol/L (6-16); Blood Urea Nitrogen 16 mg/dL (8-24); Bun/Creatinine Ratio 22.1 (12.0-20.0); CO2, Blood 24 mmol/L (21-32); Calcium, Blood 8.2 mg/dL (8.5-10.1); Chloride, Blood 117 mmol/L (98-108); Creatinine, Blood 0.73 mg/dL (0.40-1.00); Glomerular Filtration Rate 85 (60-); Glucose, Blood 93 mg/dL (70-99); Magnesium, Blood 1.6 mg/dL (1.6-2.4); Phosphorus, Blood 2.7 mg/dL (2.5-4.9); Potassium, Blood 3.2 mmol/L (3.5-5.5); Sodium, Blood 144 mmol/L (136-145)
--- NOTE | 2022-12-09 09:29 | NUR ---
RECEIVED REPORT FROM VP CARDIOVASCULAR SERVICE LINE RN, WITH PRIMARY DAY SHIFT RN. PT ALERT AND ORIENTED X4, ABLE TO STATE NEEDS AND ANSWER QUESTIONS APPROPRIATELY. LUNG SOUNDS CLEAR BILATERALLY. PT DENIED ANY CHEST PAIN/PRESSURE. DENIED ANY PAIN IN ABDOMEN. PT SINUS JOSELIN ACCORDING TO MONITOR AND BOAT CANVAS INSTALLER WITH RATE IN THE 50'S. WOUND VAC DRESSING CHANGED, WELL OSTOMY APPLIANCE AND BAG. DAYTON DRESSING INTACT AND SET TO MANUAL SUCTION. PT REFUSED BREAKFAST, STATED SHE DOES NOT HAVE AN APPETITE AND JUST WANTED TO DRINK HER ENSURE. POTASSIUM AND MAGNESIUM LEVELS SLIGHTLY LOW WITH AM LABS, CURRENTLY GETTING REPLACED. VERIFIED HGB LEVELS WITH DR. SALAS AND SHE GAVE THE OKAY TO ADMINISTER THE LOVENOX.PATIENT MADE MEDICAL STATUS NO TELE PER . CURRENTLY WAITING BED ASSIGNMENT ON MEDICAL FLOOR, WILL REPORT OFF AND CONTINUE TO MONITOR.
--- NOTE | 2022-12-09 10:04 | NUR ---
THIS RN AGREED WITH ALL THE STUDENT'S DOCUMENTATION/CHARTING.
--- NOTE | 2022-12-09 17:52 | NUR ---
SHIFT SUMMARY- PT TRANSFERRED TO MEDICAL FLOOR LATE THIS MORNING. PT CALM AND COOPERATIVE. CALLS APPROPRIATELY. PT DENIED PAIN THIS SHIFT. RN CHECKED ILLEOSTOMY MULTIPLE TIMES THIS SHIFT FOR CORRECT PLACEMENT. WOUND VAC IS AT 120 SUCTION WITH OSTOMY DRESSING PLACED OVER THE TOP. DRAINSX2 IN PROPER PLACEMENT. MINIMAL DRAINAGE. DRAINAGE FOUL SMELLING/BROWN/PURULENT. X2 RN SKIN ASSESSMENT PERFORMED WITH KAPIL URIBE-ONLY ABDOMINAL WOUNDS/DRAINS PRESENT.
--- NOTE | 2022-12-10 04:34 | NUR ---
SHIFT SUMMARY NOC PT A/O X 4. PLEASANT AND COOPERATIVE WITH CARE. PT HAS ILEOSTOMY IN RLQ WITH WOUND VAC IN PLACE UNDERNEATH IN MID SECTION FROM INFECTED INCISION SITE. PT HAS [address] DRAINING MODERATE AMOUNTS OF FOUL SMELLING BROWN PUS LIKE FLUID. WOUND VAC DRESSING WAS REINFORCED AFTER PRESSURE LEAK WAS DETECTED. PT HAD NO C/O OF PAIN DURING SHIFT. PT AMBULATED TO BS WITH 1PSBA. PT PG IN ANDREW IS PATENT BUT DOES NOT DRAW. PT IS CURRENTLY RESTING WITH BED IN LOWEST POSITION, BED ALARM ON, AND CALL LIGHT WITHIN REACH.
[2022-12-10 05:06] VITALS: BP 129/74
[2022-12-10 05:42] LABS: BASOPHILS ABSOLUTE AUTO 0.03 K/mm3 (0.00-0.23); BASOPHILS PERCENT AUTO 1 % (0-2); EOSINOPHILS ABSOLUTE AUTO 0.08 K/mm3 (0.00-0.68); EOSINOPHILS PERCENT AUTO 2 % (0-6); Hematocrit 24.8 % (33.0-51.0); Hemoglobin 7.6 g/dL (11.5-16.0); IMMATURE GRAN ABSOLUTE AUTO 0.06 K/mm3 (0.00-0.10); IMMATURE GRAN PERCENT AUTO 1 % (0-1); LYMPHOCYTES ABSOLUTE AUTO 1.19 K/mm3 (0.84-5.20); LYMPHOCYTES PERCENT AUTO 25 % (21-46); MONOCYTES ABSOLUTE AUTO 0.56 K/mm3 (0.16-1.47); MONOCYTES PERCENT AUTO 12 % (4-13); Mean Corpuscular HGB 24.8 pg (26.0-34.0); Mean Corpuscular HGB Conc 30.6 g/dL (31.5-36.5); Mean Corpuscular Volume 81 fL (80-100); Mean Platelet Volume 9.9 fL (9.1-12.4); NEUTROPHILS ABSOLUTE AUTO 2.93 K/mm3 (1.96-9.15); NEUTROPHILS PERCENT AUTO 61 % (41-73); Platelet Count 337 K/mm3 (150-400); RDW Coefficient Variation 19.1 % (11.7-14.2); RDW Standard Deviation 55.8 fL (35.1-46.3); Red Blood Cell Count 3.06 M/mm3 (3.80-5.20); White Blood Cell Count 4.85 K/mm3 (4.00-11.30)
[2022-12-10 06:01] LABS: Albumin, Blood 1.5 g/dL (3.4-5.0); Anion Gap 3 mmol/L (6-16); Blood Urea Nitrogen 9 mg/dL (8-24); Bun/Creatinine Ratio 13.2 (12.0-20.0); CO2, Blood 22 mmol/L (21-32); Calcium, Blood 7.9 mg/dL (8.5-10.1); Chloride, Blood 116 mmol/L (98-108); Creatinine, Blood 0.68 mg/dL (0.40-1.00); Glomerular Filtration Rate 90 (60-); Glucose, Blood 89 mg/dL (70-99); Magnesium, Blood 1.8 mg/dL (1.6-2.4); Phosphorus, Blood 2.9 mg/dL (2.5-4.9); Potassium, Blood 3.3 mmol/L (3.5-5.5); Sodium, Blood 141 mmol/L (136-145)
[2022-12-10 07:33] VITALS: BP 125/55
[2022-12-10 15:18] VITALS: BP 131/60
--- NOTE | 2022-12-10 16:21 | NUR ---
WOUND CARE PT IS KNOWN TO THIS RN FROM PREVIOUS ADMIT. OSTOMY APPLIANCE, WOUND VAC, AND DRAIN SPONGES BROKE DOWN. WOUNDS CLEANSED SEPERATELY WITH NS, THEN ADHESIVE REMOVER. SKIN PREP TO ALL PERIWOUNDS. CERA RING TO NAVEL TO PREVENT VAC LEAK. MIDLINE ABDOMINAL WOUND WINDOWPANED WITH TRANSPARENT FILM ENDING HALF WAY BETWEEN INCISION AND STOMA, ONE PIECE OF BLACK FOAM TO WOUND BED COVERED WITH TRANSPARENT FILM ENDING JUST PAST WINDOWPANE. HOLE CUT OVER BLACK FOAM AND VAC TUBING PLACED. A STRIP OF TUBING ADHESIVE IS TRIMMED TO ASSIST WITH PLACING THEN REINFORCED WITH TRANSPARENT TAPE. VAC IS SET TO CONTINOUS 120MMHG HYDROCOLLOID USED A SECOND "SKIN" PLACED OVER TRANSPATENT FILM BETWEEN STOMA AND INCISION. CERA RING AROUND STOMA THEN APPLIANCE PLACED. A STRIP OF APPLIANCE IS TRIMMED THEN REINFORCED WITH HYDROCOLLOID TO ASSIST WITH PLACEMENT. NEW DRAIN SPONGES PLACED. A WARM BLANKET IS THEN PLACED OVER ABDOMEN WITH PT INSTRUCTED TO LAY HANDS OVER TO ASSIST WITH VAC AND APPLIANCE ADHERANCE. DR. 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 NO NEW ORDERS RECIEVED
--- NOTE | 2022-12-10 18:29 | NUR ---
SHIFT SUMMARY- PT HAD STOOL IN BSC WHEN SHE USED BSC TO URINATE THIS SHIFT. DR. ALMONTE NOTIFIED. PT'S PAIN WELL CONTROLLED THIS SHIFT. CALM COOPERATIVE. ALL DRESSINGS ON PT'S ABDOMEN CHANGED THIS SHIFT. SUPERIOR DAYTON DRAIN EMPTIED 10ML OF PURULENT DRAINAGE THIS SHIFT. NO DRAINAGE FROM INFERIOR DRAIN. ENTIRE ILEOSTOMY DRESSING CHANGED THIS SHIFT. WOUND VAC DRESSING CHANGED THIS SHIFT.
[2022-12-10 19:15] VITALS: BP 116/91
[2022-12-11 04:30] VITALS: BP 130/60
[2022-12-11 06:26] LABS: Albumin, Blood 1.5 g/dL (3.4-5.0); Anion Gap 4 mmol/L (6-16); Blood Urea Nitrogen 8 mg/dL (8-24); Bun/Creatinine Ratio 11.9 (12.0-20.0); CO2, Blood 22 mmol/L (21-32); Chloride, Blood 113 mmol/L (98-108); Creatinine, Blood 0.67 mg/dL (0.40-1.00); Glomerular Filtration Rate 91 (60-); Glucose, Blood 95 mg/dL (70-99); Magnesium, Blood 1.7 mg/dL (1.6-2.4); Phosphorus, Blood 2.7 mg/dL (2.5-4.9); Potassium, Blood 3.5 mmol/L (3.5-5.5); Sodium, Blood 139 mmol/L (136-145)
[2022-12-11 07:30] VITALS: BP 143/67
--- NOTE | 2022-12-11 08:27 | NUR ---
SUMMARY PT RESTING. HOPING FOR DISCHARGE SOON.
[2022-12-11 15:29] VITALS: BP 143/77
--- NOTE | 2022-12-11 17:05 | NUR ---
RN NOTIFIED DR. ALMONTE THAT PT'S DAYTON DRAIN BULB WOULD NOT STAY COMPRESSED AFTER EMPTYING IT. SAID, "THE TUBING MUST HAVE CAME OUT EVEN MORE." RN ASKED IF ANYTHING NEEDED "TO BE DONE AT THIS TIME." SAID, "NO THE TUBING MUST BE REPLACED BY IR." DR. ALMONTE THEN CAME TO THE FLOOR AND PLACED SUTURES ON BOTH OF THE DRAIN TUBINGS. RN PLACED SPLIT GAUZE ON BOTH DRAIN SITES AND COVERED WITH MEDIPORE TAPE.
[2022-12-11 20:01] VITALS: BP 128/79
--- NOTE | 2022-12-12 04:18 | NUR ---
SHIFT UNREMARKABLE. PT HAS BEEN ORIENTED THROUGH SHIFT, COOPERATIVE, PLEASANT. DRAINS REMAIN INTACT ON ABDOMEN. MINIMAL DRAINAGE. ILEOSTOMY PATENT AND DRAINING WELL. CHECKED Q2-3 HOURS TO BURP AND DRAIN NEEDED. PT HAS CONTINUED TO DENY ANY PAIN THROUGHOUT SHIFT. HAS SLEPT SPORADICALLY. TRANSFERRED SBA TO BEDSIDE COMMODE EARLY IN SHIFT. PER DAY SHIFT REPORT PT MAY BE GETTING PROCEDURE PERFORMED TODAY FOR WHICH SHE WILL NEED TO BE NPO PAST MIDNIGHT. PT HAS BEEN NPO SINCE MIDNIGHT. CHARGE NURSE AND MYSELF WERE UNABLE TO FIND OUT EXACTLY WHAT PROCEDURE OR SURGICAL PROCEDURE WILL BE COMPLETED TODAY. BED LOCKED IN LOWEST POSITION. CALL LIGHT LEFT WITHIN REACH.
[2022-12-12 05:02] LABS: BASOPHILS ABSOLUTE AUTO 0.03 K/mm3 (0.00-0.23); BASOPHILS PERCENT AUTO 1 % (0-2); EOSINOPHILS ABSOLUTE AUTO 0.09 K/mm3 (0.00-0.68); EOSINOPHILS PERCENT AUTO 2 % (0-6); Hematocrit 27.5 % (33.0-51.0); Hemoglobin 8.5 g/dL (11.5-16.0); IMMATURE GRAN ABSOLUTE AUTO 0.08 K/mm3 (0.00-0.10); IMMATURE GRAN PERCENT AUTO 1 % (0-1); LYMPHOCYTES ABSOLUTE AUTO 1.26 K/mm3 (0.84-5.20); LYMPHOCYTES PERCENT AUTO 21 % (21-46); MONOCYTES ABSOLUTE AUTO 0.62 K/mm3 (0.16-1.47); MONOCYTES PERCENT AUTO 10 % (4-13); Mean Corpuscular HGB 24.5 pg (26.0-34.0); Mean Corpuscular HGB Conc 30.9 g/dL (31.5-36.5); Mean Corpuscular Volume 79 fL (80-100); Mean Platelet Volume 9.6 fL (9.1-12.4); NEUTROPHILS ABSOLUTE AUTO 4.02 K/mm3 (1.96-9.15); NEUTROPHILS PERCENT AUTO 66 % (41-73); Platelet Count 352 K/mm3 (150-400); RDW Standard Deviation 55.1 fL (35.1-46.3); Red Blood Cell Count 3.47 M/mm3 (3.80-5.20)
[2022-12-12 05:14] LABS: Albumin, Blood 1.5 g/dL (3.4-5.0); Anion Gap 2 mmol/L (6-16); Blood Urea Nitrogen 6 mg/dL (8-24); Bun/Creatinine Ratio 8.7 (12.0-20.0); CO2, Blood 25 mmol/L (21-32); Chloride, Blood 113 mmol/L (98-108); Creatinine, Blood 0.69 mg/dL (0.40-1.00); Glomerular Filtration Rate 90 (60-); Glucose, Blood 96 mg/dL (70-99); Phosphorus, Blood 2.4 mg/dL (2.5-4.9); Potassium, Blood 3.7 mmol/L (3.5-5.5); Sodium, Blood 140 mmol/L (136-145)
[2022-12-12 07:38] VITALS: BP 148/61
--- NOTE | 2022-12-12 16:04 | NUR ---
WOUND CARE WOUND VAC DRESSING CHANGED. ONE PIECE BLACK FOAM REMOVED, CLEANSED WITH NS, ONE PIECE BLACK FOAM APPLIED TO WOUND BED, ONE PIECE BLACK FOAM USED TO TRACK DRAIN OFF TO SIDE. VAC SET TO CONTINUOUS 120 MMHG. DRAIN SITES CLEANSED AND SPLIT GAUZE APPLIED. OSTOMY APPLIANCE CHANGED. STOMA IS BEEFY RED, PRAKASH-SKIN INTACT. PT TOLERATED WELL
[2022-12-12 16:18] VITALS: BP 135/58
--- NOTE | 2022-12-12 18:27 | NUR ---
SHIFT SUMMARY- PT IS A/O, PLESANT AND COOPERATVE. WOUND CARE PREFORMED THIS SHIFT BY FAMILY DENTIST. SHE SLEPT INTERMITENTLY THROUGHOUT THIS SHIFT. HER BED IS IN THE LOW POSITON AND CALL LIGHT IS WITHIN REACH.
[2022-12-12 21:19] VITALS: BP 135/74
[2022-12-13 04:20] VITALS: BP 139/64
--- NOTE | 2022-12-13 05:36 | NUR ---
CENTRAL OFFICE INSTALLER SUMMARY VSS. IV ANTIBIOTICS ADMINISTERED ORDERED. DRAINS/WOUND VAC IN USE. SELF CARE OF OSTOMY. HAS BEEN RESETING QUIETLY WITH FEW INTERRUPTIONS. CALL LIGHT IN REACH. WILL CONTINUE TO MONITOR.
[2022-12-13 07:37] VITALS: BP 132/62
[2022-12-13 16:02] VITALS: BP 135/73
--- NOTE | 2022-12-13 17:58 | NUR ---
SHIFT SUMMARY- PT IS A/O, PLESANT AND COOPERATIVE. HER APPETITE IS POOR. SHE IS RECIEVING IV ABX. SHE SLEPT INTERMITENTLY THIS SHIFT. PLAN TO DX TOMORROW. HER BED IS IN THE LOW POSITION AND CALL LIGHT IS WITHIN REACH.
[2022-12-13 19:26] VITALS: BP 132/87
[2022-12-14 03:26] VITALS: BP 143/90
--- NOTE | 2022-12-14 04:48 | NUR ---
SHIFT SUMMARY NOC PT A/O X 4. PLEASANT AND COOPERATIVE WITH CARE. HAS WOUND VAC ON ABD ADN DAYTON DRAIN/MAKKOT DRAIN IN PLACE. PT HAS ILEOSTOMY ON RLQ. PT PLAN IS TO DISCHARGE TODAY BACK TO [facility] FOR REHAB THEN BACK HOME. PT IS CURRENTLY RESTING WITH BED IN LOWEST POSITION, AND CALL LIGHT WITHIN REACH.
[2022-12-14 06:53] LABS: Albumin, Blood 1.4 g/dL (3.4-5.0); Anion Gap 2 mmol/L (6-16); Blood Urea Nitrogen 8 mg/dL (8-24); Bun/Creatinine Ratio 11.5 (12.0-20.0); CO2, Blood 25 mmol/L (21-32); Calcium, Blood 8.1 mg/dL (8.5-10.1); Chloride, Blood 111 mmol/L (98-108); Creatinine, Blood 0.69 mg/dL (0.40-1.00); Glomerular Filtration Rate 90 (60-); Glucose, Blood 85 mg/dL (70-99); Magnesium, Blood 1.8 mg/dL (1.6-2.4); Phosphorus, Blood 2.1 mg/dL (2.5-4.9); Potassium, Blood 3.1 mmol/L (3.5-5.5); Sodium, Blood 138 mmol/L (136-145)
[2022-12-14 07:36] VITALS: BP 133/73
--- NOTE | 2022-12-14 12:54 | NUR ---
WOUND CARE TELEPHONE ORDER RECIEVED TO DC WOUND VAC PER DR. ALMONTE. NEW PHOTO AND MEASURENTS IN HARD CHART. DETAILED DRESSING INSTRUCTIONS FOR SNF IN WOUND DRESSING ORDERS
[2022-12-14 13:15] LABS: SARS-Cov-2 (COVID-19) PCR, MMC Negative (NEGATIVE)
[2022-12-14] MEDS ORDERED: VISBIOME 112.51 EACH PO (13:58)
[2022-12-14] MEDS ORDERED: POTA10T PO (13:59)
== END 2022-12-14 14:26 | disposition hospice, inpatient (51) | DRG 393 ==
LOC: ER 08:03 → MEDS 13:52 → PCU 13:52 → MEDS 12-09 10:02
PROVIDERS: Internal Medicine; Physician Assistant; ADMIT Internal Medicine
DX: K63.1 Perforation of intestine (nontraumatic) (principal); E43 Unspecified severe protein-calorie malnutrition; K65.1 Peritoneal abscess; E87.20 Acidosis, unspecified; Z68.1 Body mass index [BMI] 19.9 or less, adult; I10 Essential (primary) hypertension; Z66 Do not resuscitate; Z20.822 Contact with and (suspected) exposure to COVID-19; B96.5 Pseudomonas (aeruginosa) (mallei) (pseudomallei) as the cause of diseases classified elsewhere; I95.9 Hypotension, unspecified; B96.20 Unspecified Escherichia coli [E. coli] as the cause of diseases classified elsewhere; J43.9 Emphysema, unspecified; D63.8 Anemia in other chronic diseases classified elsewhere; E88.09 Other disorders of plasma-protein metabolism, not elsewhere classified; E83.39 Other disorders of phosphorus metabolism; E86.0 Dehydration; F17.210 Nicotine dependence, cigarettes, uncomplicated; I71.40 Abdominal aortic aneurysm, without rupture, unspecified; Z90.49 Acquired absence of other specified parts of digestive tract; Z93.2 Ileostomy status; Z79.82 Long term (current) use of aspirin; Z79.899 Other long term (current) drug therapy
CPT/HCPCS: 36415; 74177; 80048; 80053; 80069; 80076; 83605; 83690; 83735; 84100; 84145; 85025; 85027; 85610; 85730; 87040; 87070; 87075; 87077; 87186; 87205; 93005; 93010; 96361; 96365-59; 96367; 96372; 96375; 96376; 99285-25; A9270; C1751; C9113; G0378; J1650; J2405; J2543; J2795; J3010; J3475; J3480; J7030; J7050; J7060; J7120; Q9967; U0004